=== PATIENT | male | born 1945 | race Caucasian/White ===

== ENCOUNTER 2016-06-20 09:21 | Emergency (ER) | payer MEDICARE, MEDICAID ==
[~2016-06-20 09:21] MED LIST: ADV250INH INH; ALBU17IN INH; AVEL1TAB PO; BACITAB3 PO; CITA40TA4 PO; LEVA750T PO; PRED10TA PO; VITMTA PO
[2016-06-20 10:02] LABS: BASO % 0.8 % (0.0-1.0); EOS # 0.6 K/mm3 (0.0-0.50); EOS % 9.2 % (0.0-3.0); LARGE UNSTAINED CELL # 0.2 K/mm3 (0.0-0.4); LARGE UNSTAINED CELL % 2.6 % (0.0-4.0); LYMPH # 1.2 K/mm3 (1.5-4.5); LYMPH % 19.3 % (24.0-44.0); MEAN CORPUSCULAR HEMOGLOBIN 36.2 pg (27.0-33.0); MEAN CORPUSCULAR HGB CONC 35.1 g/dl (32.0-36.5); MEAN CORPUSCULAR VOLUME 103.1 fl (80.0-96.0); MONO # 0.4 K/mm3 (0.0-0.8); MONO % 6.1 % (0.0-5.0); NEUTROPHILS # 3.9 K/mm3 (1.8-7.7); PLATELET COUNT, AUTOMATED 238 k/mm3 (150-450); RED CELL DISTRIBUTION WIDTH 12.5 % (11.5-14.5); WHITE BLOOD COUNT 6.2 K/mm3 (4.0-10.0)
[2016-06-20] MEDS ORDERED: IPRATROPIUM 0.5MG/ALBUTEROL 2.5MG INH SOL UD 3ML (DUONEB)(J7620) As Ordered ONE (10:05)
[2016-06-20 10:21] LABS: ANION GAP 6 MEQ/L (8-16); BLOOD UREA NITROGEN 12 MG/DL (7-18); CALCIUM LEVEL 8.8 MG/DL (8.8-10.2); CARBON DIOXIDE LEVEL 30 MEQ/L (21-32); CHLORIDE LEVEL 108 MEQ/L (98-107); CREATININE FOR GFR 0.98 MG/DL (0.70-1.30); GLOMERULAR FILTRATION RATE > 60.0 (>42); GLUCOSE, FASTING 121 MG/DL (83-110); POTASSIUM SERUM 4.3 MEQ/L (3.5-5.1); SODIUM LEVEL 144 MEQ/L (136-145)
[2016-06-20] MEDS ORDERED: methylPREDNISolone INJ 125 MG/2 ML VIAL (J2930) As Ordered ONE (10:24)
--- NOTE | 2016-06-20 10:29 | REP ---
CHEST, ONE VIEW: HISTORY: Shortness of breath. COMPARISON: 05/30/2016 An increase in interstitial markings is present in the lungs. The heart is normal in size. The pulmonary vasculature is normal in appearance. IMPRESSION: COPD. Signed by Parish Sanderson MD 06/20/2016 11:16 A
[2016-06-20] MEDS ORDERED: ALBUTEROL SULFATE 2.5 MG/0.5 ML INH NEB SOLN As Ordered ONE (11:58)
--- NOTE | 2016-06-20 13:42 | EDDOCDS ---
Nurse's Notes [facility] Name: Mann Lira Age: 71 yrs Sex: Male : 1945 Arrival Date: 06/20/2016 Time: 09:21 Bed 6 Private MD: Ct Phan PA-C. Diagnosis: Chronic obstructive pulmonary disease with (acute) exacerbation;Bronchitis, not specified as acute or chronic Presentation: 06/20 09:25 Presenting complaint: Patient states: Pt c/o cough and difficulty breathing. Reports ead diagnosis of bronchitis three weeks ago, reports some improvement initially, worsening since 4-5 days ago. Adult Sepsis Screening: The patient does not have new or worsening altered mentation. Patient has a respiratory rate of greater than or equal to 22 (1 point). Systolic blood pressure is greater than 100. Patient has a qSOFA score of 0- Negative Sepsis Screen. Suicide/Homicide risk assessment- the patient denies having any suicidal and/or homicidal ideations and does not present with any other emotional, behavioral or mental health complaints. Status: Patient is not a driver service technician or dependent. Transition of care: patient was not received from another setting of care. 09:25 Acuity: MAGDALENA Level 3 ead 09:25 Method Of Arrival: Walkin/Carried/Asstd ead Triage Assessment: 09:27 General: Appears in no apparent distress, Behavior is appropriate for age, cooperative. ead Pain: Denies pain. Neurological: No deficits noted. Cardiovascular: Chest pain is denied. Respiratory: Onset: The symptoms/episode began/occurred 4-5 days, Airway is patent Respiratory effort is labored, Reports shortness of breath cough that is. Derm: Skin is pink, warm & dry. Historical: - Allergies: no known allergies; - Home Meds: 1. Advair Diskus Inhl 2 times per day (Last dose: 06/20/2016) 2. albuterol sulfate 90 mcg/actuation Inhl HFAA 2 puffs every 4-6 hours prn (Last dose: 06/19/2016) 3. albuterol sulfate 2.5 mg /3 mL (0.083 %) Inhl nebu 3 mL every 8 hours (Last dose: 06/20/2016 00:00) 4. Celexa 40 mg Oral tab once daily (Last dose: 06/20/2016) - PMHx: Anxiety; COPD; Depression; - PSHx: none; - Social history: Smoking status: Patient states was never smoker of tobacco. No barriers to communication noted, The patient speaks fluent Maltese, Speaks appropriately for age. - Family history: Not pertinent. - : The pt / caregiver states he / she is not on anticoagulants. Home medication list is obtained from the patient, [employer] import data. - Exposure Risk Screening:: None identified. Screenin:01 Screening information is obtained from the patient. Fall risk: No risks identified. mk4 Assistance ADL's: requires no assistance with activities of daily living. Abuse/DV Screen: The patient / caregiver reports he/she is: not in a situation that causes fear, pain or injury. Nutritional screening: No deficits noted. home support is adequate. 13:39 Advance Directives: There is no active DNR order. [place] Assessment: 10:00 General: Appears in no apparent distress. Cardiovascular: Rhythm is regular. mk4 Respiratory: Airway is patent Respiratory effort is even, labored, Respiratory pattern is tachypnea Breath sounds with wheezes inspiratory expiratory bilaterally. 10:33 General: Appears in no apparent distress, comfortable. Respiratory: Airway is patent mk4 Respiratory effort is even, labored, Respiratory pattern is regular, tachypnea. 10:55 General: Appears in no apparent distress, comfortable. Respiratory: Airway is patent mk4 Respiratory pattern is tachypnea. 11:24 General: Appears in no apparent distress, comfortable, Behavior is appropriate for age, [place] cooperative. General: OOB to BR, tolerates well. Pain: Denies pain. Pain: Denies pain. Neurological: Level of Consciousness is awake, alert, Oriented to person, place, time. Respiratory: Airway is patent Respiratory effort is even, unlabored, Respiratory pattern is regular, symmetrical, Breath sounds with wheezes bilaterally. Derm: Skin is pink, warm & dry. 12:35 General: RESIDENTIAL PROPERTY CONSULTANT reports to this writer editor patient ambulated on room air to C4, O2 sat from [place] 97% to 92%, tolerated with no complaints. 13:39 General: Appears in no apparent distress, comfortable, Behavior is appropriate for age, [place] cooperative, awaiting discharge, reviewed discharge instructions, encouraged and answered questions, denies new problems or complaints and declines offer of further assistance. Vital Signs: 09:23 BP 121 / 66; Pulse 108; Resp 24 S; Temp 97.4(O); Pulse Ox 94% on R/A; Weight 61.23 kg dd6 (R); Height 5 ft. 7 in. (170.18 cm) (R); 09:35 BP 147 / 74 (auto/); mk4 09:38 Pulse 98 MON; Resp 36; Pulse Ox 93% ; mk4 09:50 BP 146 / 83 (auto/); mk4 09:51 Pulse 90 MON; Pulse Ox 94% ; mk4 10:05 BP 140 / 78 (auto/); mk4 10:05 Pulse 86 MON; Pulse Ox 94% ; mk4 10:20 BP 155 / 72 (auto/); mk4 10:20 Pulse 92 MON; Resp 36; Pulse Ox 96% ; mk4 12:29 dem1 13:27 BP 141 / 62; Pulse 92; Resp 18; Temp 97.9(O); Pulse Ox 97% on R/A; Pain 0/10; ct3 09:23 Body Mass Index 21.14 (61.23 kg, 170.18 cm) dd6 12:29 Patient ambulated with Pulse Ox, started with a stat of 96%RA, dropped down to 92%RA. dem1 No complaints, tolerated well Vitals: 09:23 Log In Time: June 20, 2016 at 09:21. dd6 ED Course: 09:23 Patient visited by Juan Lacy PCA. dd6 09:23 Ct Phan is Private Physician. dd6 09:23 Patient moved to Waiting dd6 09:24 Patient moved to Pre RCE dd6 09:26 Triage Initiated ead 09:31 Patient moved to 6 ead 09:32 Mel Martin MD is Attending Physician. fg 09:49 -Blood Culture Sent. mk4 09:49 B-Type Natiuretic Peptide Sent. mk4 09:49 Basic Metabolic Profile Sent. mk4 09:49 CBC with Diff Sent. mk4 09:49 Cardiac Injury Profile Sent. mk4 09:49 Troponin Sent. mk4 09:54 Patient visited by Mel Martin MD. fg 09:58 Patient visited by Cat Rice PCA. ct3 09:58 EKG done. (by ED staff). Reviewed by Mel Martin MD. ct3 10:01 The patient / caregiver is instructed regarding the plan of care and ED course. mk4 10:01 court monitor on. Pulse ox on. NIBP on. mk4 10:32 Patient visited by Cata Terrell RN. mk4 10:33 [facility] Payment Agreement was scanned into [employer] and attached to record. lg 10:33 Inserted saline lock: 20 gauge in right antecubital area and blood collected. No mk4 procedures done that require assistance. 10:44 Chest, 1 View Returned. EDMS 11:02 Patient visited by Cata Terrell RN. mk4 12:03 Patient visited by Cat Rice PCA. ct3 12:30 Patient visited by Dana Olmstead. dem1 13:15 Patient visited by Cat Rice PCA. ct3 13:18 Ct Phan is Referral Physician. fg 13:28 Patient visited by Cat Rice PCA. ct3 13:39 Discontinued lock intact, bleeding controlled, pressure dressing applied, No cjh redness/swelling at site. Administered Medications: 10:09 Drug: Albuterol-Ipratropium 3 ml [ipratropium-albuterol 0.5 mg-3 mg(2.5 mg base)/3 mL cs15 nebulization soln (3 mL)] Route: Inhalation; 10:32 Drug: Solu-MEDROL 125 mg [Solu-Medrol 500 mg intravenous solution (125 mg)] Route: IVP; mk4 Site: right antecubital; 12:04 Drug: Albuterol 2.5 mg [albuterol sulfate 2.5 mg/0.5 mL solution for nebulization (0.5 cs15 mL)] Route: Nebulizer; RT: 10:10 Initial Med Neb Given as ordered. Respiratory: Respiratory effort is labored, cs15 Respiratory pattern is regular Breath sounds are diminished bilaterally. Breath sounds with wheezes in left upper lobe and left lower lobe at expiration. 12:04 Subsequent Med Neb Given as ordered. Respiratory: Respiratory effort is unlabored, cs15 Breath sounds are clear bilaterally. SOB attributed to walking. Lung status has not changed. Order Results: Lab Order: B-Type Natiuretic Peptide; SPEC'M 06/20/16 09:47 Test: BRAIN NATRIURETIC PEPTIDE; Value: 18.6; Range: <100; Units: PG/ML; Status: F Lab Order: Basic Metabolic Profile; SPEC'M 06/20/16 09:47 Test: GLUCOSE, FASTING; Value: 121; Range: 83-110; Abnormal: Above high normal; Units: MG/DL; Status: F Test: BLOOD UREA NITROGEN; Value: 12; Range: 7-18; Units: MG/DL; Status: F Test: CREATININE FOR GFR; Value: 0.98; Range: 0.70-1.30; Units: MG/DL; Status: F Test: GLOMERULAR FILTRATION RATE; Value: > 60.0; Range: >42; Status: F Test: SODIUM LEVEL; Value: 144; Range: 136-145; Units: MEQ/L; Status: F Test: POTASSIUM SERUM; Value: 4.3; Range: 3.5-5.1; Units: MEQ/L; Status: F Test: CHLORIDE LEVEL; Value: 108; Range: 98-107; Abnormal: Above high normal; Units: MEQ/L; Status: F Test: CARBON DIOXIDE LEVEL; Value: 30; Range: 21-32; Units: MEQ/L; Status: F Test: ANION GAP; Value: 6; Range: 8-16; Abnormal: Below low normal; Units: MEQ/L; Status: F Test: CALCIUM LEVEL; Value: 8.8; Range: 8.8-10.2; Units: MG/DL; Status: F Test Note: ; Units are mL/min/1.73 m2 Chronic Kidney Disease Staging per NKF: Stage I & II GFR >=60 Normal to Mildly Decreased Stage III GFR 30-59 Moderately Decreased Stage IV GFR 15-29 Severely Decreased Stage V GFR <15 Very Little GFR Left ESRD GFR <15 on EDITORIAL CARTOONIST Lab Order: CBC with Diff; SPEC'M 06/20/16 09:47 Test: WHITE BLOOD COUNT; Value: 6.2; Range: 4.0-10.0; Units: K/mm3; Status: F Test: RED BLOOD COUNT; Value: 4.74; Range: 4.30-6.10; Units: M/mm3; Status: F Test: HEMOGLOBIN; Value: 17.1; Range: 14.0-18.0; Units: g/dl; Status: F Test: HEMATOCRIT; Value: 48.8; Range: 42.0-52.0; Units: %; Status: F Test: MEAN CORPUSCULAR VOLUME; Value: 103.1; Range: 80.0-96.0; Abnormal: Above high normal; Units: fl; Status: F Test: MEAN CORPUSCULAR HEMOGLOBIN; Value: 36.2; Range: 27.0-33.0; Abnormal: Above high normal; Units: pg; Status: F Test: MEAN CORPUSCULAR HGB CONC; Value: 35.1; Range: 32.0-36.5; Units: g/dl; Status: F Test: RED CELL DISTRIBUTION WIDTH; Value: 12.5; Range: 11.5-14.5; Units: %; Status: F Test: PLATELET COUNT, AUTOMATED; Value: 238; Range: 150-450; Units: k/mm3; Status: F Test: NEUTROPHILS %; Value: 62.0; Range: 36.0-66.0; Units: %; Status: F Test: LYMPH %; Value: 19.3; Range: 24.0-44.0; Abnormal: Below low normal; Units: %; Status: F Test: MONO %; Value: 6.1; Range: 0.0-5.0; Abnormal: Above high normal; Units: %; Status: F Test: EOS %; Value: 9.2; Range: 0.0-3.0; Abnormal: Above high normal; Units: %; Status: F Test: BASO %; Value: 0.8; Range: 0.0-1.0; Units: %; Status: F Test: LARGE UNSTAINED CELL %; Value: 2.6; Range: 0.0-4.0; Units: %; Status: F Test: NEUTROPHILS #; Value: 3.9; Range: 1.8-7.7; Units: K/mm3; Status: F Test: LYMPH #; Value: 1.2; Range: 1.5-4.5; Abnormal: Below low normal; Units: K/mm3; Status: F Test: MONO #; Value: 0.4; Range: 0.0-0.8; Units: K/mm3; Status: F Test: EOS #; Value: 0.6; Range: 0.0-0.50; Abnormal: Above high normal; Units: K/mm3; Status: F Test: BASO #; Value: 0.0; Range: 0.0-0.2; Units: K/mm3; Status: F Test: LARGE UNSTAINED CELL #; Value: 0.2; Range: 0.0-0.4; Units: K/mm3; Status: F Lab Order: Cardiac Injury Profile; SPEC'M 06/20/16 09:47 Test: CPK CREATINE PHOSPHOKINASE; Value: 61; Range: 39-308; Units: U/L; Status: F Test: CK-MB VALUE MASS; Value: 2.8; Range: 0.0-3.6; Units: NG/ML; Status: F Test: MB/CK RELATIVE INDEX; Value: 4.59; Range: < OR =4; Abnormal: Above high normal; Status: F Test Note: ; DIAGNOSIS CRITERIA MMB ng/ml Relative Index (RI) NON-AMI < or = 5 N/A BRINK ZONE > 5 < or = 4 AMI > 5 > 4 Lab Order: Troponin; SPEC'M 06/20/16 09:47 Test: TROPONIN I; Value: < 0.02; Range: < 0.10; Units: NG/ML; Status: F Test Note: ; Troponin I Reference Interval for Rdio LOCI: 99th Percentile= 0.00-0.045 ng/ml Risk Stratification: <= 0.10 ng/ml Decreased Risk for Adverse Clinical Events. 0.10-1.50 ng/ml Increased Risk for Adverse Clinical Events. Evaluation of additional criterion and/or repeat testing in 2-6 hours is suggested to rule out myocardial damage. >= 1.50 ng/ml Indicative of Myocardial Injury. Radiology Order: Chest, 1 View Test: Chest, 1 View REASON FOR EXAMINATION: Shortness of Breath; CHEST, ONE VIEW:; ; HISTORY: Shortness of breath.; ; COMPARISON: 05/30/2016; ; An increase in interstitial markings is present in the lungs. The heart is normal; in size. The pulmonary vasculature is normal in appearance.; ; IMPRESSION:; ; COPD.; ; ; Signed by; Parish Sanderson MD 06/20/2016 11:16 A; Outcome: 13:19 Discharge ordered by Provider. 13:39 Discharge Assessment: Patient awake, alert and oriented x 3. No cognitive and/or cjh functional deficits noted. Patient verbalized understanding of disposition instructions. patient administered narcotics - no. The following High Risk Discharge criteria are identified: None. Discharged to home ambulatory, with significant other. Condition: good Condition: stable Condition: improved. Discharge instructions given to patient, Instructed on discharge instructions, follow up and referral plans. medication usage, Demonstrated understanding of instructions, medications, Pt was receptive of discharge instructions/ teaching. Prescriptions given X 1. No special radiology studies were completed. Property :Personal belongings accompany Pt. 13:41 Patient left the ED. [place] Signatures: Dispatcher [employer] EDMS Kumar Lawrence, Reg Reg lg Juan Lacy, RESIDENTIAL PROPERTY CONSULTANT RESIDENTIAL PROPERTY CONSULTANT dd6 Cat Rice, RESIDENTIAL PROPERTY CONSULTANT RESIDENTIAL PROPERTY CONSULTANT ct3 Dana Olmstead1 Kayla Maurer,RN RN [place] Cata Terrell RN RN mk4 Linda Herrera,RN RN Mel Hidalgo MD MD fg Shelton, Caleb,RT RT cs15 Corrections: (The following items were deleted from the chart) 10:56 10:20 Pulse 92bpm; Monitor; Pulse Ox 96%; mk4 mk4 MTDD
--- NOTE | 2016-06-20 13:42 | EDDOCDS ---
Physician Documentation [facility] Name: Mann Lira Age: 71 yrs Sex: Male : 1945 Arrival Date: 06/20/2016 Time: 09:21 Bed 6 Private MD: Ct Phan PA-C. Disposition: 06/20/16 13:19 Discharged to Home/Self Care. Impression: Chronic obstructive pulmonary disease with (acute) exacerbation, Bronchitis, not specified as acute or chronic. - Condition is Stable. - Discharge Instructions: Acute Bronchitis, Chronic Obstructive Pulmonary Disease. - Prescriptions for Doxycycline Hyclate 100 mg Oral Tablet - take 1 tablet by ORAL route every 12 hours; 20 tablet. - Medication Reconciliation, Local Pharmacy Hours form. - Follow up: Ct Phan; When: Call to arrange an appointment; Reason: Continuance of care. - Problem is new. - Symptoms have worsened. Historical: - Allergies: no known allergies; - Home Meds: 1. Advair Diskus Inhl 2 times per day (Last dose: 06/20/2016) 2. albuterol sulfate 90 mcg/actuation Inhl HFAA 2 puffs every 4-6 hours prn (Last dose: 06/19/2016) 3. albuterol sulfate 2.5 mg /3 mL (0.083 %) Inhl nebu 3 mL every 8 hours (Last dose: 06/20/2016 00:00) 4. Celexa 40 mg Oral tab once daily (Last dose: 06/20/2016) - PMHx: Anxiety; COPD; Depression; - PSHx: none; - Social history: Smoking status: Patient states was never smoker of tobacco. No barriers to communication noted, The patient speaks fluent Georgian, Speaks appropriately for age. - Family history: Not pertinent. - : The pt / caregiver states he / she is not on anticoagulants. Home medication list is obtained from the patient, [employer] import data. - Exposure Risk Screening:: None identified. Vital Signs: 06/20 09:23 BP 121 / 66; Pulse 108; Resp 24 S; Temp 97.4(O); Pulse Ox 94% on R/A; Weight 61.23 kg / dd6 134.99 lbs (R); Height 5 ft. 7 in. (170.18 cm) (R); 09:35 BP 147 / 74 (auto/); mk4 09:38 Pulse 98 MON; Resp 36; Pulse Ox 93% ; mk4 09:50 BP 146 / 83 (auto/); mk4 09:51 Pulse 90 MON; Pulse Ox 94% ; mk4 10:05 BP 140 / 78 (auto/); mk4 10:05 Pulse 86 MON; Pulse Ox 94% ; mk4 10:20 BP 155 / 72 (auto/); mk4 10:20 Pulse 92 MON; Resp 36; Pulse Ox 96% ; mk4 12:29 dem1 13:27 BP 141 / 62; Pulse 92; Resp 18; Temp 97.9(O); Pulse Ox 97% on R/A; Pain 0/10; ct3 09:23 Body Mass Index 21.14 (61.23 kg, 170.18 cm) dd6 12:29 Patient ambulated with Pulse Ox, started with a stat of 96%RA, dropped down to 92%RA. dem1 No complaints, tolerated well MDM: 09:32 -Blood Culture (Adults Only), peripheral from different site, or from device/port/PICC fg etc. if present ordered. 09:32 Tow Driver/Pulse Ox/q 15 min VS ordered. fg 09:32 IV Saline Lock ordered. fg 09:32 Oxygen at 4L/Min NC or Home dosage ordered. fg 09:32 Rhythm Strip to chart ordered. fg 09:33 B-Type Natiuretic Peptide Ordered. EDMS 09:33 Basic Metabolic Profile Ordered. EDMS 09:33 CBC with Diff Ordered. EDMS 09:33 Cardiac Injury Profile Ordered. EDMS 09:33 Troponin Ordered. EDMS 09:33 -Blood Culture Ordered. EDMS 09:34 Chest, 1 View Ordered. EDMS 09:34 ECG WITH READING ER PHYS+CARDIAG ordered. EDMS 09:45 -Blood Culture (Adults Only), peripheral from different site, or from device/port/PICC deg etc. if present complete. 09:46 BLOOD CULTURES Ordered. EDMS 10:02 Solu-MEDROL 125 mg IVP once ordered. fg 10:02 Albuterol-Ipratropium 3 ml Inhalation once ordered. fg 10:02 Call Respiratory ordered. fg 10:03 Call Respiratory complete. deg 10:32 Financial registration complete. lg 10:33 [facility] Payment Agreement was scanned into [employer] and attached to record. lg 11:36 Albuterol 2.5 mg Nebulizer once ordered. fg Administered Medications: 10:09 Drug: Albuterol-Ipratropium 3 ml [ipratropium-albuterol 0.5 mg-3 mg(2.5 mg base)/3 mL cs15 nebulization soln (3 mL)] Route: Inhalation; 10:32 Drug: Solu-MEDROL 125 mg [Solu-Medrol 500 mg intravenous solution (125 mg)] Route: IVP; mk4 Site: right antecubital; 12:04 Drug: Albuterol 2.5 mg [albuterol sulfate 2.5 mg/0.5 mL solution for nebulization (0.5 cs15 mL)] Route: Nebulizer; Signatures: Dispatcher [employer] Maria Alejandra Antonio, Chief Counsel Unit deg Kumar Lawrence, Hema Reg lg Kayla Maurer,RN Cata Elmore RN INDIRA [facility] Linda Herrera RN RN ead Gill, Frances, MD MD Noah Aquino RT cs15 The chart was reviewed and I authenticate all verbal orders and agree with the evaluation and treatment provided.Attachments: 10:33 [facility] Payment Agreement lg MTDD
--- NOTE | 2016-06-21 08:01 | ECGEPIP ---
Stationary ECG Study [facility] - ED Test Date: 2016-06-20 Pat Name: CHAD ROLLINS Department: Room: - Gender: M Dehydrator: ct : 1945 Requested By: NIGEL Torres Order Number: [id number] Reading MD: Marbella Ro Measurements Intervals [place] Rate: 91 P: 78 RI: 171 QRS: 56 QRSD: 82 T: 59 QT: 339 QTc: 418 Interpretive Statements SINUS RHYTHM WITH OCCASIONAL VENTRICULAR PREMATURE COMPLEXES DECREASED RATE/INCREASED ECTOPY 05/30/16 Electronically Signed On 06-21-2016 8:00:49 EST by Marbella Ro
--- NOTE | 2016-06-22 14:42 | EDDOCDS ---
Physician Documentation [facility] Name: Mann Lira Age: 71 yrs Sex: Male : 1945 Arrival Date: 06/20/2016 Time: 09:21 Bed 6 Private MD: Ct Phan PA-C. Disposition: 06/20/16 13:19 Discharged to Home/Self Care. Impression: Chronic obstructive pulmonary disease with (acute) exacerbation, Bronchitis, not specified as acute or chronic. - Condition is Stable. - Discharge Instructions: Acute Bronchitis, Chronic Obstructive Pulmonary Disease. - Prescriptions for Doxycycline Hyclate 100 mg Oral Tablet - take 1 tablet by ORAL route every 12 hours; 20 tablet. - Medication Reconciliation, Local Pharmacy Hours form. - Follow up: Ct Phan; When: Call to arrange an appointment; Reason: Continuance of care. - Problem is new. - Symptoms have worsened. Historical: - Allergies: no known allergies; - Home Meds: 1. Advair Diskus Inhl 2 times per day (Last dose: 06/20/2016) 2. albuterol sulfate 90 mcg/actuation Inhl HFAA 2 puffs every 4-6 hours prn (Last dose: 06/19/2016) 3. albuterol sulfate 2.5 mg /3 mL (0.083 %) Inhl nebu 3 mL every 8 hours (Last dose: 06/20/2016 00:00) 4. Celexa 40 mg Oral tab once daily (Last dose: 06/20/2016) - PMHx: Anxiety; COPD; Depression; - PSHx: none; - Social history: Smoking status: Patient states was never smoker of tobacco. No barriers to communication noted, The patient speaks fluent Haitian, Speaks appropriately for age. - Family history: Not pertinent. - : The pt / caregiver states he / she is not on anticoagulants. Home medication list is obtained from the patient, [employer] import data. - Exposure Risk Screening:: None identified. Vital Signs: 06/20 09:23 BP 121 / 66; Pulse 108; Resp 24 S; Temp 97.4(O); Pulse Ox 94% on R/A; Weight 61.23 kg / dd6 134.99 lbs (R); Height 5 ft. 7 in. (170.18 cm) (R); 09:35 BP 147 / 74 (auto/); mk4 09:38 Pulse 98 MON; Resp 36; Pulse Ox 93% ; mk4 09:50 BP 146 / 83 (auto/); mk4 09:51 Pulse 90 MON; Pulse Ox 94% ; mk4 10:05 BP 140 / 78 (auto/); mk4 10:05 Pulse 86 MON; Pulse Ox 94% ; mk4 10:20 BP 155 / 72 (auto/); mk4 10:20 Pulse 92 MON; Resp 36; Pulse Ox 96% ; mk4 12:29 dem1 13:27 BP 141 / 62; Pulse 92; Resp 18; Temp 97.9(O); Pulse Ox 97% on R/A; Pain 0/10; ct3 09:23 Body Mass Index 21.14 (61.23 kg, 170.18 cm) dd6 12:29 Patient ambulated with Pulse Ox, started with a stat of 96%RA, dropped down to 92%RA. dem1 No complaints, tolerated well MDM: 09:32 -Blood Culture (Adults Only), peripheral from different site, or from device/port/PICC fg etc. if present ordered. 09:32 Field Consultant/Pulse Ox/q 15 min VS ordered. fg 09:32 IV Saline Lock ordered. fg 09:32 Oxygen at 4L/Min NC or Home dosage ordered. fg 09:32 Rhythm Strip to chart ordered. fg 09:33 B-Type Natiuretic Peptide Ordered. EDMS 09:33 Basic Metabolic Profile Ordered. EDMS 09:33 CBC with Diff Ordered. EDMS 09:33 Cardiac Injury Profile Ordered. EDMS 09:33 Troponin Ordered. EDMS 09:33 -Blood Culture Ordered. EDMS 09:34 Chest, 1 View Ordered. EDMS 09:34 ECG WITH READING ER PHYS+CARDIAG ordered. EDMS 09:45 -Blood Culture (Adults Only), peripheral from different site, or from device/port/PICC deg etc. if present complete. 09:46 BLOOD CULTURES Ordered. EDMS 10:02 Solu-MEDROL 125 mg IVP once ordered. fg 10:02 Albuterol-Ipratropium 3 ml Inhalation once ordered. fg 10:02 Call Respiratory ordered. fg 10:03 Call Respiratory complete. deg 10:32 Financial registration complete. lg 10:33 [facility] Payment Agreement was scanned into [email or web address] and attached to record. lg 11:36 Albuterol 2.5 mg Nebulizer once ordered. fg 06/21 12:02 T-Sheet-- Draft Copy was scanned into [employer] and attached to record. gb 12:02 ECG/EKG was scanned into [email or web address] and attached to record. gb Administered Medications: 06/20 10:09 Drug: Albuterol-Ipratropium 3 ml [ipratropium-albuterol 0.5 mg-3 mg(2.5 mg base)/3 mL cs15 nebulization soln (3 mL)] Route: Inhalation; 10:32 Drug: Solu-MEDROL 125 mg [Solu-Medrol 500 mg intravenous solution (125 mg)] Route: IVP; mk4 Site: right antecubital; 12:04 Drug: Albuterol 2.5 mg [albuterol sulfate 2.5 mg/0.5 mL solution for nebulization (0.5 cs15 mL)] Route: Nebulizer; Signatures: Dispatcher [employer] EDMS Maria Alejandra Angeles, End [employer]pler Unit deg Nadia Hallman, Reg Reg gb Kumar Lawrence, Reg Reg lg Kayla MaurerRN Cata Elmore RN RN [facility] Linda HerreraRN RN Mel Hidalgo MD MD Noah Aquino RT [id number] The chart was reviewed and I authenticate all verbal orders and agree with the evaluation and treatment provided.Attachments: 10:33 [facility] Payment Agreement lg 06/21 12:02 T-Sheet-- Draft Copy gb 12:02 ECG/EKG gb Chart Complete [facility]
--- NOTE | 2016-06-22 14:42 | EDDOCDS ---
Physician Documentation [facility] Name: Mann Lira Age: 71 yrs Sex: Male : 1945 Arrival Date: 06/20/2016 Time: 09:21 Bed 6 Private MD: Ct Phan PA-C. Disposition: 06/20/16 13:19 Discharged to Home/Self Care. Impression: Chronic obstructive pulmonary disease with (acute) exacerbation, Bronchitis, not specified as acute or chronic. - Condition is Stable. - Discharge Instructions: Acute Bronchitis, Chronic Obstructive Pulmonary Disease. - Prescriptions for Doxycycline Hyclate 100 mg Oral Tablet - take 1 tablet by ORAL route every 12 hours; 20 tablet. - Medication Reconciliation, Local Pharmacy Hours form. - Follow up: Ct Phan; When: Call to arrange an appointment; Reason: Continuance of care. - Problem is new. - Symptoms have worsened. Historical: - Allergies: no known allergies; - Home Meds: 1. Advair Diskus Inhl 2 times per day (Last dose: 06/20/2016) 2. albuterol sulfate 90 mcg/actuation Inhl HFAA 2 puffs every 4-6 hours prn (Last dose: 06/19/2016) 3. albuterol sulfate 2.5 mg /3 mL (0.083 %) Inhl nebu 3 mL every 8 hours (Last dose: 06/20/2016 00:00) 4. Celexa 40 mg Oral tab once daily (Last dose: 06/20/2016) - PMHx: Anxiety; COPD; Depression; - PSHx: none; - Social history: Smoking status: Patient states was never smoker of tobacco. No barriers to communication noted, The patient speaks fluent Chadian, Speaks appropriately for age. - Family history: Not pertinent. - : The pt / caregiver states he / she is not on anticoagulants. Home medication list is obtained from the patient, [employer] import data. - Exposure Risk Screening:: None identified. Vital Signs: 06/20 09:23 BP 121 / 66; Pulse 108; Resp 24 S; Temp 97.4(O); Pulse Ox 94% on R/A; Weight 61.23 kg / dd6 134.99 lbs (R); Height 5 ft. 7 in. (170.18 cm) (R); 09:35 BP 147 / 74 (auto/); mk4 09:38 Pulse 98 MON; Resp 36; Pulse Ox 93% ; mk4 09:50 BP 146 / 83 (auto/); mk4 09:51 Pulse 90 MON; Pulse Ox 94% ; mk4 10:05 BP 140 / 78 (auto/); mk4 10:05 Pulse 86 MON; Pulse Ox 94% ; mk4 10:20 BP 155 / 72 (auto/); mk4 10:20 Pulse 92 MON; Resp 36; Pulse Ox 96% ; mk4 12:29 dem1 13:27 BP 141 / 62; Pulse 92; Resp 18; Temp 97.9(O); Pulse Ox 97% on R/A; Pain 0/10; ct3 09:23 Body Mass Index 21.14 (61.23 kg, 170.18 cm) dd6 12:29 Patient ambulated with Pulse Ox, started with a stat of 96%RA, dropped down to 92%RA. dem1 No complaints, tolerated well MDM: 09:32 -Blood Culture (Adults Only), peripheral from different site, or from device/port/PICC fg etc. if present ordered. 09:32 Director Of Early Childhood/Pulse Ox/q 15 min VS ordered. fg 09:32 IV Saline Lock ordered. fg 09:32 Oxygen at 4L/Min NC or Home dosage ordered. fg 09:32 Rhythm Strip to chart ordered. fg 09:33 B-Type Natiuretic Peptide Ordered. EDMS 09:33 Basic Metabolic Profile Ordered. EDMS 09:33 CBC with Diff Ordered. EDMS 09:33 Cardiac Injury Profile Ordered. EDMS 09:33 Troponin Ordered. EDMS 09:33 -Blood Culture Ordered. EDMS 09:34 Chest, 1 View Ordered. EDMS 09:34 ECG WITH READING ER PHYS+CARDIAG ordered. EDMS 09:45 -Blood Culture (Adults Only), peripheral from different site, or from device/port/PICC deg etc. if present complete. 09:46 BLOOD CULTURES Ordered. EDMS 10:02 Solu-MEDROL 125 mg IVP once ordered. fg 10:02 Albuterol-Ipratropium 3 ml Inhalation once ordered. fg 10:02 Call Respiratory ordered. fg 10:03 Call Respiratory complete. deg 10:32 Financial registration complete. lg 10:33 [facility] Payment Agreement was scanned into [employer] and attached to record. lg 11:36 Albuterol 2.5 mg Nebulizer once ordered. fg 06/21 12:02 T-Sheet-- Draft Copy was scanned into [employer] and attached to record. gb 12:02 ECG/EKG was scanned into [employer] and attached to record. gb Administered Medications: 06/20 10:09 Drug: Albuterol-Ipratropium 3 ml [ipratropium-albuterol 0.5 mg-3 mg(2.5 mg base)/3 mL cs15 nebulization soln (3 mL)] Route: Inhalation; 10:32 Drug: Solu-MEDROL 125 mg [Solu-Medrol 500 mg intravenous solution (125 mg)] Route: IVP; mk4 Site: right antecubital; 12:04 Drug: Albuterol 2.5 mg [albuterol sulfate 2.5 mg/0.5 mL solution for nebulization (0.5 cs15 mL)] Route: Nebulizer; Signatures: Dispatcher MedHost EDMS Maria Alejandra Angeles, Senior Solutions Workflow Consultant Unit deg Nadia Hallman, Reg Reg gb Kumar Lawrence, Reg Reg lg Kayla MaurerRN Cata Elmore RN RN [facility] Linda HerreraRN RN Mel Hidalgo MD MD Noah Aquino RT cs15 The chart was reviewed and I authenticate all verbal orders and agree with the evaluation and treatment provided.Attachments: 10:33 [facility] Payment Agreement lg 06/21 12:02 T-Sheet-- Draft Copy gb 12:02 ECG/EKG gb Chart Complete [facility]
--- NOTE | 2016-06-22 14:42 | EDDOCDS ---
Nurse's Notes [facility] Name: Chad Lira Age: 71 yrs Sex: Male : 1945 Arrival Date: 06/20/2016 Time: 09:21 Bed 6 Private MD: Ct Phan PA-C. Diagnosis: Chronic obstructive pulmonary disease with (acute) exacerbation;Bronchitis, not specified as acute or chronic Presentation: 06/20 09:25 Presenting complaint: Patient states: Pt c/o cough and difficulty breathing. Reports ead diagnosis of bronchitis three weeks ago, reports some improvement initially, worsening since 4-5 days ago. Adult Sepsis Screening: The patient does not have new or worsening altered mentation. Patient has a respiratory rate of greater than or equal to 22 (1 point). Systolic blood pressure is greater than 100. Patient has a qSOFA score of 0- Negative Sepsis Screen. Suicide/Homicide risk assessment- the patient denies having any suicidal and/or homicidal ideations and does not present with any other emotional, behavioral or mental health complaints. Status: Patient is not a service or work dispatcher chief or dependent. Transition of care: patient was not received from another setting of care. 09:25 Acuity: MAGDALENA Level 3 ead 09:25 Method Of Arrival: Walkin/Carried/Asstd ead Triage Assessment: 09:27 General: Appears in no apparent distress, Behavior is appropriate for age, cooperative. ead Pain: Denies pain. Neurological: No deficits noted. Cardiovascular: Chest pain is denied. Respiratory: Onset: The symptoms/episode began/occurred 4-5 days, Airway is patent Respiratory effort is labored, Reports shortness of breath cough that is. Derm: Skin is pink, warm & dry. Historical: - Allergies: no known allergies; - Home Meds: 1. Advair Diskus Inhl 2 times per day (Last dose: 06/20/2016) 2. albuterol sulfate 90 mcg/actuation Inhl HFAA 2 puffs every 4-6 hours prn (Last dose: 06/19/2016) 3. albuterol sulfate 2.5 mg /3 mL (0.083 %) Inhl nebu 3 mL every 8 hours (Last dose: 06/20/2016 00:00) 4. Celexa 40 mg Oral tab once daily (Last dose: 06/20/2016) - PMHx: Anxiety; COPD; Depression; - PSHx: none; - Social history: Smoking status: Patient states was never smoker of tobacco. No barriers to communication noted, The patient speaks fluent Honduran, Speaks appropriately for age. - Family history: Not pertinent. - : The pt / caregiver states he / she is not on anticoagulants. Home medication list is obtained from the patient, [employer] import data. - Exposure Risk Screening:: None identified. Screenin:01 Screening information is obtained from the patient. Fall risk: No risks identified. mk4 Assistance ADL's: requires no assistance with activities of daily living. Abuse/DV Screen: The patient / caregiver reports he/she is: not in a situation that causes fear, pain or injury. Nutritional screening: No deficits noted. home support is adequate. 13:39 Advance Directives: There is no active DNR order. [facility] Assessment: 10:00 General: Appears in no apparent distress. Cardiovascular: Rhythm is regular. mk4 Respiratory: Airway is patent Respiratory effort is even, labored, Respiratory pattern is tachypnea Breath sounds with wheezes inspiratory expiratory bilaterally. 10:33 General: Appears in no apparent distress, comfortable. Respiratory: Airway is patent mk4 Respiratory effort is even, labored, Respiratory pattern is regular, tachypnea. 10:55 General: Appears in no apparent distress, comfortable. Respiratory: Airway is patent mk4 Respiratory pattern is tachypnea. 11:24 General: Appears in no apparent distress, comfortable, Behavior is appropriate for age, [facility] cooperative. General: OOB to BR, tolerates well. Pain: Denies pain. Pain: Denies pain. Neurological: Level of Consciousness is awake, alert, Oriented to person, place, time. Respiratory: Airway is patent Respiratory effort is even, unlabored, Respiratory pattern is regular, symmetrical, Breath sounds with wheezes bilaterally. Derm: Skin is pink, warm & dry. 12:35 General: JUDGE'S CLERK reports to this sign writer hand patient ambulated on room air to C4, O2 sat from [facility] 97% to 92%, tolerated with no complaints. 13:39 General: Appears in no apparent distress, comfortable, Behavior is appropriate for age, [facility] cooperative, awaiting discharge, reviewed discharge instructions, encouraged and answered questions, denies new problems or complaints and declines offer of further assistance. Vital Signs: 09:23 BP 121 / 66; Pulse 108; Resp 24 S; Temp 97.4(O); Pulse Ox 94% on R/A; Weight 61.23 kg dd6 (R); Height 5 ft. 7 in. (170.18 cm) (R); 09:35 BP 147 / 74 (auto/); mk4 09:38 Pulse 98 MON; Resp 36; Pulse Ox 93% ; mk4 09:50 BP 146 / 83 (auto/); mk4 09:51 Pulse 90 MON; Pulse Ox 94% ; mk4 10:05 BP 140 / 78 (auto/); mk4 10:05 Pulse 86 MON; Pulse Ox 94% ; mk4 10:20 BP 155 / 72 (auto/); mk4 10:20 Pulse 92 MON; Resp 36; Pulse Ox 96% ; mk4 12:29 dem1 13:27 BP 141 / 62; Pulse 92; Resp 18; Temp 97.9(O); Pulse Ox 97% on R/A; Pain 0/10; ct3 09:23 Body Mass Index 21.14 (61.23 kg, 170.18 cm) dd6 12:29 Patient ambulated with Pulse Ox, started with a stat of 96%RA, dropped down to 92%RA. dem1 No complaints, tolerated well Vitals: 09:23 Log In Time: June 20, 2016 at 09:21. dd6 ED Course: 09:23 Patient visited by Juan Lacy PCA. dd6 09:23 Ct Phan is Private Physician. dd6 09:23 Patient moved to Waiting dd6 09:24 Patient moved to Pre RCE dd6 09:26 Triage Initiated ead 09:31 Patient moved to 6 ead 09:32 Mel Martin MD is Attending Physician. fg 09:49 -Blood Culture Sent. mk4 09:49 B-Type Natiuretic Peptide Sent. mk4 09:49 Basic Metabolic Profile Sent. mk4 09:49 CBC with Diff Sent. mk4 09:49 Cardiac Injury Profile Sent. mk4 09:49 Troponin Sent. mk4 09:54 Patient visited by Mel Martin MD. fg 09:58 Patient visited by Cat Rice PCA. ct3 09:58 EKG done. (by ED staff). Reviewed by Mel Martin MD. ct3 10:01 The patient / caregiver is instructed regarding the plan of care and ED course. mk4 10:01 satellite project site monitor on. Pulse ox on. NIBP on. mk4 10:32 Patient visited by Cata Terrell RN. mk4 10:33 [facility] Payment Agreement was scanned into [employer] and attached to record. lg 10:33 Inserted saline lock: 20 gauge in right antecubital area and blood collected. No mk4 procedures done that require assistance. 10:44 Chest, 1 View Returned. EDMS 11:02 Patient visited by Cata Terrell RN. mk4 12:03 Patient visited by Cat Rice PCA. ct3 12:30 Patient visited by Dana Olmstead. dem1 13:15 Patient visited by Cat Rice PCA. ct3 13:18 Ct Phan is Referral Physician. fg 13:28 Patient visited by Cat Rice PCA. ct3 13:39 Discontinued lock intact, bleeding controlled, pressure dressing applied, No cjh redness/swelling at site. 06/21 08:09 EKG-ADULT Returned. EDMS 12:02 T-Sheet-- Draft Copy was scanned into [employer] and attached to record. gb 12:02 ECG/EKG was scanned into [employer] and attached to record. gb Administered Medications: 06/20 10:09 Drug: Albuterol-Ipratropium 3 ml [ipratropium-albuterol 0.5 mg-3 mg(2.5 mg base)/3 mL cs15 nebulization soln (3 mL)] Route: Inhalation; 10:32 Drug: Solu-MEDROL 125 mg [Solu-Medrol 500 mg intravenous solution (125 mg)] Route: IVP; mk4 Site: right antecubital; 12:04 Drug: Albuterol 2.5 mg [albuterol sulfate 2.5 mg/0.5 mL solution for nebulization (0.5 cs15 mL)] Route: Nebulizer; RT: 10:10 Initial Med Neb Given as ordered. Respiratory: Respiratory effort is labored, cs15 Respiratory pattern is regular Breath sounds are diminished bilaterally. Breath sounds with wheezes in left upper lobe and left lower lobe at expiration. 12:04 Subsequent Med Neb Given as ordered. Respiratory: Respiratory effort is unlabored, cs15 Breath sounds are clear bilaterally. SOB attributed to walking. Lung status has not changed. Order Results: Lab Order: -Blood Culture; SPEC'M 06/20/16 09:47 Test: BLOOD CULTURE; Value: No growth after 24 hours . All specimens observed; Status: F Test: BLOOD CULTURE; Value: for 5 days. Results final at that time.; Status: F Test: BLOOD CULTURE; Value: No Growth after 48 hours. All Specimens observed; Status: F Test: BLOOD CULTURE; Value: for 7 days. Results final at that time.; Status: F Lab Order: B-Type Natiuretic Peptide; SPEC'M 06/20/16 09:47 Test: BRAIN NATRIURETIC PEPTIDE; Value: 18.6; Range: <100; Units: PG/ML; Status: F Lab Order: Basic Metabolic Profile; SPEC'M 06/20/16 09:47 Test: GLUCOSE, FASTING; Value: 121; Range: 83-110; Abnormal: Above high normal; Units: MG/DL; Status: F Test: BLOOD UREA NITROGEN; Value: 12; Range: 7-18; Units: MG/DL; Status: F Test: CREATININE FOR GFR; Value: 0.98; Range: 0.70-1.30; Units: MG/DL; Status: F Test: GLOMERULAR FILTRATION RATE; Value: > 60.0; Range: >42; Status: F Test: SODIUM LEVEL; Value: 144; Range: 136-145; Units: MEQ/L; Status: F Test: POTASSIUM SERUM; Value: 4.3; Range: 3.5-5.1; Units: MEQ/L; Status: F Test: CHLORIDE LEVEL; Value: 108; Range: 98-107; Abnormal: Above high normal; Units: MEQ/L; Status: F Test: CARBON DIOXIDE LEVEL; Value: 30; Range: 21-32; Units: MEQ/L; Status: F Test: ANION GAP; Value: 6; Range: 8-16; Abnormal: Below low normal; Units: MEQ/L; Status: F Test: CALCIUM LEVEL; Value: 8.8; Range: 8.8-10.2; Units: MG/DL; Status: F Test Note: ; Units are mL/min/1.73 m2 Chronic Kidney Disease Staging per NKF: Stage I & II GFR >=60 Normal to Mildly Decreased Stage III GFR 30-59 Moderately Decreased Stage IV GFR 15-29 Severely Decreased Stage V GFR <15 Very Little GFR Left ESRD GFR <15 on HEALTH PROGRAM SPECIALIST Lab Order: CBC with Diff; SPEC'M 06/20/16 09:47 Test: WHITE BLOOD COUNT; Value: 6.2; Range: 4.0-10.0; Units: K/mm3; Status: F Test: RED BLOOD COUNT; Value: 4.74; Range: 4.30-6.10; Units: M/mm3; Status: F Test: HEMOGLOBIN; Value: 17.1; Range: 14.0-18.0; Units: g/dl; Status: F Test: HEMATOCRIT; Value: 48.8; Range: 42.0-52.0; Units: %; Status: F Test: MEAN CORPUSCULAR VOLUME; Value: 103.1; Range: 80.0-96.0; Abnormal: Above high normal; Units: fl; Status: F Test: MEAN CORPUSCULAR HEMOGLOBIN; Value: 36.2; Range: 27.0-33.0; Abnormal: Above high normal; Units: pg; Status: F Test: MEAN CORPUSCULAR HGB CONC; Value: 35.1; Range: 32.0-36.5; Units: g/dl; Status: F Test: RED CELL DISTRIBUTION WIDTH; Value: 12.5; Range: 11.5-14.5; Units: %; Status: F Test: PLATELET COUNT, AUTOMATED; Value: 238; Range: 150-450; Units: k/mm3; Status: F Test: NEUTROPHILS %; Value: 62.0; Range: 36.0-66.0; Units: %; Status: F Test: LYMPH %; Value: 19.3; Range: 24.0-44.0; Abnormal: Below low normal; Units: %; Status: F Test: MONO %; Value: 6.1; Range: 0.0-5.0; Abnormal: Above high normal; Units: %; Status: F Test: EOS %; Value: 9.2; Range: 0.0-3.0; Abnormal: Above high normal; Units: %; Status: F Test: BASO %; Value: 0.8; Range: 0.0-1.0; Units: %; Status: F Test: LARGE UNSTAINED CELL %; Value: 2.6; Range: 0.0-4.0; Units: %; Status: F Test: NEUTROPHILS #; Value: 3.9; Range: 1.8-7.7; Units: K/mm3; Status: F Test: LYMPH #; Value: 1.2; Range: 1.5-4.5; Abnormal: Below low normal; Units: K/mm3; Status: F Test: MONO #; Value: 0.4; Range: 0.0-0.8; Units: K/mm3; Status: F Test: EOS #; Value: 0.6; Range: 0.0-0.50; Abnormal: Above high normal; Units: K/mm3; Status: F Test: BASO #; Value: 0.0; Range: 0.0-0.2; Units: K/mm3; Status: F Test: LARGE UNSTAINED CELL #; Value: 0.2; Range: 0.0-0.4; Units: K/mm3; Status: F Lab Order: Cardiac Injury Profile; SPEC'M 06/20/16 09:47 Test: CPK CREATINE PHOSPHOKINASE; Value: 61; Range: 39-308; Units: U/L; Status: F Test: CK-MB VALUE MASS; Value: 2.8; Range: 0.0-3.6; Units: NG/ML; Status: F Test: MB/CK RELATIVE INDEX; Value: 4.59; Range: < OR =4; Abnormal: Above high normal; Status: F Test Note: ; DIAGNOSIS CRITERIA MMB ng/ml Relative Index (RI) NON-AMI < or = 5 N/A BRINK ZONE > 5 < or = 4 AMI > 5 > 4 Lab Order: Troponin; SPEC'M 06/20/16 09:47 Test: TROPONIN I; Value: < 0.02; Range: < 0.10; Units: NG/ML; Status: F Test Note: ; Troponin I Reference Interval for [employer]ee[employer] LOCI: 99th Percentile= 0.00-0.045 ng/ml Risk Stratification: <= 0.10 ng/ml Decreased Risk for Adverse Clinical Events. 0.10-1.50 ng/ml Increased Risk for Adverse Clinical Events. Evaluation of additional criterion and/or repeat testing in 2-6 hours is suggested to rule out myocardial damage. >= 1.50 ng/ml Indicative of Myocardial Injury. Lab Order: BLOOD CULTURES; SPEC'M 06/20/16 10:12 Test: BLOOD CULTURE; Value: No growth after 24 hours . All specimens observed; Status: F Test: BLOOD CULTURE; Value: for 5 days. Results final at that time.; Status: F Test: BLOOD CULTURE; Value: No Growth after 48 hours. All Specimens observed; Status: F Test: BLOOD CULTURE; Value: for 7 days. Results final at that time.; Status: F Radiology Order: Chest, 1 View Test: Chest, 1 View REASON FOR EXAMINATION: Shortness of Breath; CHEST, ONE VIEW:; ; HISTORY: Shortness of breath.; ; COMPARISON: 05/30/2016; ; An increase in interstitial markings is present in the lungs. The heart is normal; in size. The pulmonary vasculature is normal in appearance.; ; IMPRESSION:; ; COPD.; ; ; Signed by; Parish Sanderson MD 06/20/2016 11:16 A; Radiology Order: EKG-ADULT Test: EKG-ADULT REASON FOR EXAMINATION: Shortness of Breath; Stationary ECG Study; [facility] - ED; ; Test Date: 2016-06-20; Pat Name: CHAD LIRA Department:; Room: -; Gender: M Bulk Clerk: ct; : 1945 Requested By: MEL Torres; Order Number: [id number] Reading MD: Marbella Ro; Measurements; Intervals [place]; Rate: 91 P: 78; MD: 171 QRS: 56; QRSD: 82 T: 59; QT: 339; QTc: 418; Interpretive Statements; SINUS RHYTHM WITH OCCASIONAL VENTRICULAR PREMATURE COMPLEXES; DECREASED RATE/INCREASED ECTOPY 05/30/16; Electronically Signed On 06-21-2016 8:00:49 EST by Marbella Ro; Outcome: 13:19 Discharge ordered by Provider. fg 13:39 Discharge Assessment: Patient awake, alert and oriented x 3. No cognitive and/or cjh functional deficits noted. Patient verbalized understanding of disposition instructions. patient administered narcotics - no. The following High Risk Discharge criteria are identified: None. Discharged to home ambulatory, with significant other. Condition: good Condition: stable Condition: improved. Discharge instructions given to patient, Instructed on discharge instructions, follow up and referral plans. medication usage, Demonstrated understanding of instructions, medications, Pt was receptive of discharge instructions/ teaching. Prescriptions given X 1. No special radiology studies were completed. Property :Personal belongings accompany Pt. 13:41 Patient left the ED. [facility] Signatures: Dispatcher MedHost EDMS Viji, Nadia, Reg Reg gb Melinda, Martitae, Reg Reg lg Amariormkimanitien, Juan, JUDGE'S CLERK JUDGE'S CLERK dd6 Rice, Cat, JUDGE'S CLERK JUDGE'S CLERK ct3 Ishan, Dana dem1 Kayla MaurerRN RN [facility] Cata Terrell RN RN mk4 Linda HerreraRN RN Mel Hidalgo MD MD fg Shelton, Caleb,RT RT cs15 Corrections: (The following items were deleted from the chart) 10:56 10:20 Pulse 92bpm; Monitor; Pulse Ox 96%; mk4 mk4 Chart Complete MTDD
== END 2016-06-20 13:41 | disposition home or self-care (01) ==
LOC: M ED 09:21
DX: J20.9 Acute bronchitis, unspecified (principal); J44.1 Chronic obstructive pulmonary disease with (acute) exacerbation; F41.9 Anxiety disorder, unspecified; F32.9 Major depressive disorder, single episode, unspecified; Z79.51 Long term (current) use of inhaled steroids; Z79.899 Other long term (current) drug therapy
CPT/HCPCS: 36415; 71010; 80048; 82550; 82553; 83880; 84484; 85025; 87040; 93005; 93041; 94640; 96374; 99285; J2930

== ENCOUNTER 2017-06-27 13:18 | Emergency (ER) | payer MEDICARE, MEDICAID | END 2017-06-27 14:48 | disposition home or self-care (01) | LOC: M ED 13:18 | DX: S22.42XA Multiple fractures of ribs, left side, initial encounter for closed fracture (principal); J94.8 Other specified pleural conditions; W01.0XXA Fall on same level from slipping, tripping and stumbling without subsequent striking against object, initial encounter; Y92.9 Unspecified place or not applicable; Y93.9 Activity, unspecified; J44.9 Chronic obstructive pulmonary disease, unspecified; Z82.49 Family history of ischemic heart disease and other diseases of the circulatory system; Z79.899 Other long term (current) drug therapy | CPT/HCPCS: 71101 ==

== ENCOUNTER → 2017-10-19 | Outpatient (CLI) | payer MEDICARE, MEDICAID ==
[2017-10-19 12:48] LABS: ALBUMIN 3.5 GM/DL (3.2-5.2); ALBUMIN/GLOBULIN RATIO 1.09 (1.00-1.93); ALKALINE PHOSPHATASE 83 U/L (45-117); ALT/SGPT 20 U/L (12-78); ANION GAP 6 MEQ/L (8-16); AST/SGOT 22 U/L (7-37); BILIRUBIN,TOTAL 0.5 MG/DL (0.2-1.0); BLOOD UREA NITROGEN 14 MG/DL (7-18); CALCIUM LEVEL 8.6 MG/DL (8.8-10.2); CARBON DIOXIDE LEVEL 26 MEQ/L (21-32); CHLORIDE LEVEL 109 MEQ/L (98-107); CHOLESTEROL LEVEL 203 MG/DL (<200); CHOLESTEROL RISK RATIO 2.182 (<5); CREATININE FOR GFR 0.94 MG/DL (0.70-1.30); FREE T4 0.72 NG/DL (0.76-1.46); GLOMERULAR FILTRATION RATE > 60.0 (>42); GLUCOSE, FASTING 89 MG/DL (70-100); HDL CHOLESTEROL 93 MG/DL (>40); NON-HDL-C 110 MG/DL; POTASSIUM SERUM 4.4 MEQ/L (3.5-5.1); SODIUM LEVEL 141 MEQ/L (136-145); TOTAL PROTEIN 6.7 GM/DL (6.4-8.2); TRIGLYCERIDES LEVEL 45 MG/DL (<150)
== END ==
LOC: M LAB 11:12
DX: Z00.00 Encounter for general adult medical examination without abnormal findings (principal)
CPT/HCPCS: 84443

== ENCOUNTER → 2018-10-12 | Outpatient (CLI) | payer MEDICARE, MEDICAID ==
[~2018-10-12] MED LIST changes: -AVEL1TAB PO; +AVEL1TAB3 PO; +BACITAB PO; -BACITAB3 PO; +CITA40TA4; +HYDR-3715 PO; -LEVA750T PO; +LEVA750T7 PO; +MUCI600T37 PO; +PRED-351 PO; -PRED10TA PO
[2018-10-12 13:28] LABS: BASO # 0.1 10^3/uL (0.0-0.2); BASO % 2.1 % (0.0-1.0); EOS # 0.6 10^3/uL (0.0-0.50); EOS % 12.7 % (0.0-3.0); HEMATOCRIT 45.6 % (42.0-52.0); HEMOGLOBIN 15.5 g/dl (13.5-17.5); LYMPH # 1.7 10^3/uL (1.5-4.5); LYMPH % 35.3 % (24.0-44.0); MEAN CORPUSCULAR HEMOGLOBIN 34.2 pg (27.0-33.0); MEAN CORPUSCULAR VOLUME 100.7 fl (80.0-96.0); MONO # 0.5 10^3/uL (0.0-0.8); MONO % 10.4 % (0.0-5.0); NEUTROPHILS # 1.9 10^3/uL (1.8-7.7); NEUTROPHILS % 39.3 % (36.0-66.0); PLATELET COUNT, AUTOMATED 252 10^3/uL (150-450); RED BLOOD COUNT 4.53 10^6/uL (4.30-6.10); WHITE BLOOD COUNT 4.8 10^3/uL (4.0-10.0)
[2018-10-12 14:08] LABS: ALBUMIN 3.3 GM/DL (3.2-5.2); ALT/SGPT 23 U/L (12-78); BILIRUBIN,TOTAL 0.5 MG/DL (0.2-1.0); BLOOD UREA NITROGEN 17 MG/DL (7-18); CALCIUM LEVEL 8.9 MG/DL (8.8-10.2); CARBON DIOXIDE LEVEL 29 MEQ/L (21-32); CHLORIDE LEVEL 106 MEQ/L (98-107); CHOLESTEROL LEVEL 197 MG/DL (<200); CHOLESTEROL RISK RATIO 1.989 (<5); CREATININE FOR GFR 0.92 MG/DL (0.70-1.30); GLOMERULAR FILTRATION RATE > 60.0 (>42); GLUCOSE, FASTING 89 MG/DL (70-100); HDL CHOLESTEROL 99 MG/DL (>40); LDL CHOLESTEROL 89 MG/DL (<100); NON-HDL-C 98 MG/DL; POTASSIUM SERUM 4.4 MEQ/L (3.5-5.1); SODIUM LEVEL 139 MEQ/L (136-145); TRIGLYCERIDES LEVEL 43 MG/DL (<150)
== END ==
LOC: M LAB 12:38
PROVIDERS: ATTEND Physician Assistant
DX: Z00.00 Encounter for general adult medical examination without abnormal findings (principal)

== ENCOUNTER → 2019-12-24 | Outpatient (CLI) | payer MEDICARE, MEDICAID ==
[2019-12-24 10:28] LABS: BASO # 0.1 10^3/uL (0.0-0.2); BASO % 2.1 % (0.0-1.0); EOS # 0.8 10^3/uL (0.0-0.5); HEMATOCRIT 46.3 % (42.0-52.0); HEMOGLOBIN 15.5 g/dl (13.5-17.5); LYMPH # 1.5 10^3/uL (1.5-5.0); LYMPH % 34.2 % (24.0-44.0); MEAN CORPUSCULAR HEMOGLOBIN 34.5 pg (27.0-33.0); MEAN CORPUSCULAR HGB CONC 33.5 g/dl (32.0-36.5); MEAN CORPUSCULAR VOLUME 103.1 fl (80.0-96.0); MONO # 0.5 10^3/uL (0.0-0.8); MONO % 12.2 % (0.0-5.0); NEUTROPHILS # 1.4 10^3/uL (1.5-8.5); NEUTROPHILS % 32.3 % (36.0-66.0); PLATELET COUNT, AUTOMATED 259 10^3/uL (150-450); RED BLOOD COUNT 4.49 10^6/uL (4.30-6.10); WHITE BLOOD COUNT 4.4 10^3/uL (4.0-10.0)
[2019-12-24 10:55] LABS: ALBUMIN 3.1 GM/DL (3.2-5.2); ALT/SGPT 17 U/L (12-78); BILIRUBIN,TOTAL 0.4 MG/DL (0.2-1.0); BLOOD UREA NITROGEN 18 MG/DL (7-18); CALCIUM LEVEL 8.7 MG/DL (8.8-10.2); CARBON DIOXIDE LEVEL 25 MEQ/L (21-32); CHLORIDE LEVEL 109 MEQ/L (98-107); CHOLESTEROL LEVEL 202 MG/DL (<200); CHOLESTEROL RISK RATIO 2.348 (<5); CREATININE FOR GFR 0.84 MG/DL (0.70-1.30); GLOMERULAR FILTRATION RATE > 60.0 (>42); GLUCOSE, FASTING 90 MG/DL (70-100); HDL CHOLESTEROL 86 MG/DL (>40); LDL CHOLESTEROL 105 MG/DL (<100); NON-HDL-C 116 MG/DL; POTASSIUM SERUM 4.9 MEQ/L (3.5-5.1); SODIUM LEVEL 141 MEQ/L (136-145); TRIGLYCERIDES LEVEL 56 MG/DL (<150)
== END ==
LOC: M LAB 09:39
PROVIDERS: ATTEND Physician Assistant
DX: Z00.00 Encounter for general adult medical examination without abnormal findings (principal); Z79.899 Other long term (current) drug therapy

== ENCOUNTER → 2020-03-30 | Outpatient (CLI) | payer MEDICARE, MEDICAID ==
--- NOTE | 2020-03-30 11:29 | REP ---
INDICATION: COPD COMPARISON: 06/27/2017 as well as other prior exams. TECHNIQUE: PA/Lateral FINDINGS: The heart is normal in size. There is no hilar or mediastinal adenopathy. I see no evidence of acute infiltrate in either lung. There is mild biapical pleural thickening. There is pleural and parenchymal scarring in the left costophrenic angle. There are multiple old left rib fractures. There are mild diffuse degenerative changes of the spine without compression deformity. IMPRESSION: No acute pulmonary disease. 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 <Electronically signed by Dave Cherry > 03/30/20 [id number]
== END ==
LOC: M RAD 09:51
PROVIDERS: ATTEND Physician Assistant Medical
DX: J84.10 Pulmonary fibrosis, unspecified (principal); J44.1 Chronic obstructive pulmonary disease with (acute) exacerbation

== ENCOUNTER → 2021-01-22 | Outpatient (CLI) | payer MEDICARE, MEDICAID ==
[2021-01-22 12:02] LABS: BASO # 0.1 10^3/uL (0.0-0.2); BASO % 1.6 % (0.0-1.0); EOS % 19.1 % (0.0-3.0); HEMATOCRIT 46.2 % (42.0-52.0); HEMOGLOBIN 15.5 g/dl (13.5-17.5); LYMPH # 1.6 10^3/uL (1.5-5.0); LYMPH % 31.5 % (24.0-44.0); MEAN CORPUSCULAR HEMOGLOBIN 33.9 pg (27.0-33.0); MEAN CORPUSCULAR HGB CONC 33.5 g/dl (32.0-36.5); MEAN CORPUSCULAR VOLUME 101.1 fl (80.0-96.0); MONO # 0.7 10^3/uL (0.0-0.8); MONO % 13.5 % (2.0-8.0); NEUTROPHILS # 1.7 10^3/uL (1.5-8.5); NEUTROPHILS % 33.9 % (36.0-66.0); PLATELET COUNT, AUTOMATED 246 10^3/uL (150-450); RED BLOOD COUNT 4.57 10^6/uL (4.30-6.10)
[2021-01-22 12:28] LABS: ALBUMIN 3.1 GM/DL (3.2-5.2); ALT/SGPT 26 U/L (12-78); BILIRUBIN,TOTAL 0.5 MG/DL (0.2-1.0); BLOOD UREA NITROGEN 16 MG/DL (7-18); CALCIUM LEVEL 8.8 MG/DL (8.8-10.2); CARBON DIOXIDE LEVEL 28 MEQ/L (21-32); CHLORIDE LEVEL 107 MEQ/L (98-107); CHOLESTEROL LEVEL 226 MG/DL (<200); CHOLESTEROL RISK RATIO 1.965 (<5); CREATININE FOR GFR 0.91 MG/DL (0.70-1.30); GLOMERULAR FILTRATION RATE > 60.0 (>42); GLUCOSE, FASTING 92 MG/DL (70-100); HDL CHOLESTEROL 115 MG/DL (>40); LDL CHOLESTEROL 103 MG/DL (<100); NON-HDL-C 111 MG/DL; POTASSIUM SERUM 4.3 MEQ/L (3.5-5.1); SODIUM LEVEL 140 MEQ/L (136-145); TRIGLYCERIDES LEVEL 39 MG/DL (<150)
== END ==
LOC: M LAB 11:31
PROVIDERS: ATTEND Family Medicine
DX: Z00.00 Encounter for general adult medical examination without abnormal findings (principal); Z79.899 Other long term (current) drug therapy

== ENCOUNTER 2021-01-29 08:58 | Emergency (ER) | payer MEDICARE, MEDICAID ==
[~2021-01-29] VITALS: Ht 165.1 cm; Wt 65.5 kg
[2021-01-29 11:59] LABS: BASO # 0.1 10^3/uL (0.0-0.2); BASO % 1.6 % (0.0-1.0); EOS # 0.1 10^3/uL (0.0-0.5); EOS % 3.8 % (0.0-3.0); HEMATOCRIT 47.6 % (42.0-52.0); LYMPH # 1.2 10^3/uL (1.5-5.0); LYMPH % 34.1 % (24.0-44.0); MEAN CORPUSCULAR HGB CONC 33.6 g/dl (32.0-36.5); MEAN CORPUSCULAR VOLUME 101.1 fl (80.0-96.0); MONO # 0.5 10^3/uL (0.0-0.8); MONO % 13.2 % (2.0-8.0); NEUTROPHILS # 1.7 10^3/uL (1.5-8.5); PLATELET COUNT, AUTOMATED 240 10^3/uL (150-450); RED BLOOD COUNT 4.71 10^6/uL (4.30-6.10); WHITE BLOOD COUNT 3.6 10^3/uL (4.0-10.0)
[2021-01-29] MEDS ORDERED: ISOVUE-370 76% 100ML VIAL As Ordered ONE (12:13)
[2021-01-29 12:35] LABS: ALBUMIN 3.2 GM/DL (3.2-5.2); ALT/SGPT 27 U/L (12-78); BILIRUBIN,DIRECT 0.1 MG/DL (0.0-0.2); BILIRUBIN,TOTAL 0.4 MG/DL (0.2-1.0); CK-MB VALUE MASS 2.1 NG/ML (<3.6); CPK CREATINE PHOSPHOKINASE 56 U/L (39-308); LIPASE 120 U/L (73-393); MB/CK RELATIVE INDEX 3.75 (< OR =4); TOTAL PROTEIN 7.2 GM/DL (6.4-8.2); TROPONIN I < 0.02 NG/ML (< 0.10)
--- NOTE | 2021-01-29 12:42 | REP ---
INDICATION: Right upper. COMPARISON: None TECHNIQUE: Axial contrast-enhanced images from the lung bases to the pubic symphysis using 100 cc Isovue 370 intravenous contrast material. . This CT examination was performed using the following dose reduction techniques: Automated exposure control, adjustment of mA and/or kv according to the patient's size, and the use of iterative reconstruction technique. FINDINGS: Lung bases demonstrate mild bibasilar atelectasis. There is a small right pleural effusion with surrounding pleural enhancement raising the possibility of forming empyema along with trace left pleural fluid. Liver, spleen, pancreas, gallbladder, bilateral adrenal glands and kidneys are normal. The enteric system including stomach, small, and large bowel appears normal. No evidence for obstruction or acute inflammatory process. Normal terminal ileum and appendix are identified in the right lower quadrant. Pelvis demonstrates enlarged prostate gland with mass effect on the base of the bladder. No ascites. No free air. No intraperitoneal or retroperitoneal adenopathy. Abdominal aorta and vasculature demonstrate atherosclerotic changes without aneurysm or dissection. 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 IMPRESSION: 1. Lung base findings as described above including bibasilar atelectasis and small right pleural effusion which may represent a forming empyema. 2. No acute abdominopelvic pathology appreciated. 3. Heterogeneous enlarged prostate gland. <Electronically signed by Manuel Mancilla > 01/29/21 [id number]
[2021-01-29 13:45] VITALS: BP 142/85
--- NOTE | 2021-01-29 14:54 | REP ---
INDICATION: pleural effusion COMPARISON: Multiple the latest 05/30/2016 TECHNIQUE: standard helical technique without intravenous contrast FINDINGS: There is no significant change in appearance of the mediastinum or pulmonary tigre. There is a small right and a tiny left pleural effusion. There is no pericardial effusion. There is no significant change in appearance of the imaged upper abdomen or imaged osseous structures. There multiple old left rib fractures. Evaluation of the lung taylor shows bilateral lower lung field posterior asymmetric densities representing a change from the prior exam. Inferior lingular asymmetric densities are also identified. These are all pleural based or abut the aforementioned effusions. There is a stable right middle lobe nodule. Patchy asymmetric densities are seen in the upper lobes with a subtle ground-glass appearance left greater than right and representing a change from the prior exam. IMPRESSION: Lung field findings as described above suspicious for infectious etiology. Certainly, neoplastic change cannot be completely ruled out. Follow-up is recommended. There is excretion of previously administered radiographic contrast material in each kidney from a CT examination of the abdomen and pelvis obtained earlier same day. <Electronically signed by Sergio Arambula > 01/29/21 [id number]
--- NOTE | 2021-01-29 21:23 | ECGEPIP ---
[facility] - ED Test Date: 2021-01-29 Pat Name: CHAD ROLLINS Department: Room: - Gender: Male [employer] Supervisor: Angelique CESAR : 1945 Requested By: Marbella Ro Order Number: [id number] Reading MD: Marbella Ro Measurements Intervals [place] Rate: 76 P: 90 [place]: 178 QRS: 26 QRSD: 82 T: 42 QT: 390 QTc: 438 Interpretive Statements Normal sinus rhythm Electronically Signed on 01-29-2021 21:23:06 EDT by Marbella Ro
--- NOTE | 2021-02-03 12:28 | ED PDOC ---
Post-Departure Follow-Up radiology report faxed to Dr. debbie Reveles, Marbella Castillo MD Feb 03, 2021 12:28
== END 2021-01-29 15:24 | disposition home or self-care (01) ==
LOC: M ED 08:58
DX: J90 Pleural effusion, not elsewhere classified (principal); J98.11 Atelectasis; R91.8 Other nonspecific abnormal finding of lung field; N40.0 Benign prostatic hyperplasia without lower urinary tract symptoms; R10.9 Unspecified abdominal pain; R11.0 Nausea
CPT/HCPCS: 36415; 71250; 74177; 80047; 80076; 82550; 82553; 83690; 84484; 85025; 93005; 93041; 99285; Q9967

== ENCOUNTER → 2021-03-31 | Outpatient (CLI) | payer MEDICARE, MEDICAID ==
--- NOTE | 2021-03-31 11:27 | REP ---
INDICATION: ABN FINDINGS OF LUNG FIELD COMPARISON: Multiple the latest 01/29/2021 also without contrast TECHNIQUE: Standard helical technique without contrast FINDINGS: There is no significant change in appearance of the mediastinum or pulmonary tigre. Once again, there are multiple borderline round mediastinal and hilar lymph nodes status quo. There is a small right pleural effusion status quo. The imaged upper abdomen and imaged osseous structures are unchanged. Evaluation of the lung taylor shows scattered asymmetric densities which are essentially unchanged and particularly seen in the lung bases, however, there is a new asymmetric ground-glass nodule in the inferior right upper lobe which measures 1.2 cm. IMPRESSION: For the most part the lung taylor are stable as described above, however, there is a new asymmetric ground-glass nodule in the right upper lobe as described above. Due to it sudden onset it likely represents a continuum of chronic lung disease, however, clinical correlation and follow-up is suggested. There is no revised Fleischner society criteria on the recommendation for follow-up of such findings. <Electronically signed by Sergio Arambula > 03/31/21 1128
== END ==
LOC: M RAD 10:34
PROVIDERS: ATTEND Internal Medicine Pulmonary Disease
DX: R91.8 Other nonspecific abnormal finding of lung field (principal)

== ENCOUNTER → 2021-04-16 | Outpatient (CLI) | payer MEDICARE, MEDICAID ==
[2021-04-16 13:42] LABS: BASO # 0.1 10^3/uL (0.0-0.2); BASO % 1.2 % (0.0-1.0); EOS # 0.4 10^3/uL (0.0-0.5); EOS % 8.3 % (0.0-3.0); HEMATOCRIT 44.7 % (42.0-52.0); HEMOGLOBIN 14.7 g/dl (13.5-17.5); LYMPH # 1.5 10^3/uL (1.5-5.0); LYMPH % 29.4 % (24.0-44.0); MEAN CORPUSCULAR HEMOGLOBIN 33.7 pg (27.0-33.0); MEAN CORPUSCULAR HGB CONC 32.9 g/dl (32.0-36.5); MEAN CORPUSCULAR VOLUME 102.5 fl (80.0-96.0); MONO # 0.7 10^3/uL (0.0-0.8); MONO % 14.1 % (2.0-8.0); NEUTROPHILS # 2.3 10^3/uL (1.5-8.5); NEUTROPHILS % 46.6 % (36.0-66.0); PLATELET COUNT, AUTOMATED 265 10^3/uL (150-450); RED BLOOD COUNT 4.36 10^6/uL (4.30-6.10)
[2021-04-16 13:55] LABS: INR 0.93; PROTHROMBIN TIME 12.8 SECONDS (12.7-14.5)
[2021-04-16 13:56] LABS: PARTIAL THROMBOPLASTIN TIME 33.6 SECONDS (25.9-37.0)
[2021-04-16 14:10] LABS: ERYTHROCYTE SEDIMENTATION RATE 13 mm/hr (0-20)
[2021-04-16 14:28] LABS: ALBUMIN 3.4 GM/DL (3.2-5.2); ALT/SGPT 23 U/L (12-78); BILIRUBIN,DIRECT 0.2 MG/DL (0.0-0.2); BILIRUBIN,TOTAL 0.4 MG/DL (0.2-1.0); CALCIUM LEVEL 9.4 MG/DL (8.8-10.2); CREATININE FOR GFR 0.89 MG/DL (0.70-1.30); GLOMERULAR FILTRATION RATE > 60.0 (>42); TOTAL PROTEIN 7.3 GM/DL (6.4-8.2)
== END ==
LOC: M PLALAB 11:24
PROVIDERS: ATTEND Internal Medicine Pulmonary Disease
DX: R91.8 Other nonspecific abnormal finding of lung field (principal)

== ENCOUNTER → 2021-04-22 | Outpatient (CLI) | payer MEDICARE, MEDICAID ==
[~2021-04-22] MED LIST changes: -CITA40TA4; +FLUT1BLS6 INH
--- NOTE | 2021-04-23 14:03 | ECHO ---
ECHOCARDIOGRAM DATE OF PROCEDURE: 04/22/2021 Age: 76 Gender: Male Height: 67 inches Weight: 145 pounds Body surface area: 1.76 m2 PATIENT LOCATION: Outpatient. REFERRING PHYSICIAN: Manuelito Viera M.D. INDICATION: Shortness of breath; asthma. MEASUREMENTS: 2D Measurements: RV - 3.6 cm LV - 4.3 cm Septum 1.1 cm Posterior wall 1.1 cm Aortic root 3.6 cm LA - 4.1 cm LVEF 70% Doppler Measurements: AV - 1.78 m/sec LVOT - 0.94 m/sec LVOT diameter 1.9 cm MV-E 95, A 91, EA ratio 1 Early mitral deceleration time 180 msec E prime medial 6 A prime medial 10.5 E prime lateral 10.9 Average E/E prime ratio 11.2/PCWP 15.8 mmHg PV - 0.8 m/sec Pulmonary artery acceleration time 109 msec PASP - 34 mmHg IVC - 1.6 cm COMMENTS: Normal sinus rhythm without intraventricular conduction disturbance. M-mode and 2-dimensional cardiography was performed with pulse, continuous wave, color flow and tissue Doppler studies. Normal left ventricular size with wall thickness upper limits of normal with hyperkinetic wall motion. Slightly dilated left atrium with grade 1 left ventricular (LV) diastolic dysfunction, but current estimated mean left atrial pressure within normal limits. Normal right heart chamber sizes and motion with single Doppler sign of mild pulmonary hypertension. Normal inferior vena cava (IVC) size and collapse against an elevated central venous pressure. Normal aortic dimensions. Mild aortic valvular sclerosis without functional abnormality. Mild degenerative changes of the mitral valvular apparatus without inflow tract obstruction and only trace insufficiency. Normal appearing tricuspid valve with only trace insufficiency. No apparent intracardiac mass or pericardial effusion.
== END ==
LOC: M CARPUL 10:03
PROVIDERS: ATTEND Internal Medicine Pulmonary Disease
DX: J45.40 Moderate persistent asthma, uncomplicated (principal); R06.02 Shortness of breath

== ENCOUNTER → 2021-04-26 | Outpatient (CLI) | payer MEDICARE, MEDICAID ==
[~2021-04-26] MED LIST changes: +HOME MED LIST COMPLETE! XX SCH; +LIDOCAINE 1% MDV 20ML VIAL As Ordered ONE
[2021-04-26 12:00] VITALS: BP 124/60
--- NOTE | 2021-04-26 16:04 | REP ---
INDICATION: RLL NODULE. COMPARISON: None. TECHNIQUE: The procedure is performed by YAN Malone, under the direct supervision of Dr. Cherry. The risks and benefits of the procedure were explained to the patient and informed consent was obtained both orally and written. Directly prior to the start of the procedure, a formal timeout was done in the exam room. The right lower lobe lung nodule was localized using CT guidance. Skin was prepped and draped in the usual sterile fashion. Ten ml of 1% lidocaine 10 mg/ml was used as a local anesthetic. FINDINGS: Using CT guidance a 19/20 gauge coaxial needle biopsy system was inserted and advanced into the nodule. Four core biopsy samples were obtained and sent to the lab. CT images obtained directly after the biopsy show no evidence of pneumothorax. After the appropriate amount of monitored convalescence the patient was discharged from the department. IMPRESSION: Technically successful CT-guided right lower lobe lung nodule biopsy with 4 core biopsy specimens obtained. These were sent to the lab for further evaluation. Results pending. <Electronically signed by Therese Luciano > 04/26/21 1207 <Electronically signed by Dave Cherry > 04/26/21 1600
--- NOTE | 2021-04-26 16:04 | REP ---
INDICATION: S/P LUNG BIOPSY, WITH EXPIRATION. COMPARISON: 03/30/2020. TECHNIQUE: Single expiratory view chest. FINDINGS: There is no pneumothorax status post right lung biopsy. There is chronic pleural thickening and mild bibasilar atelectatic change. The heart and mediastinum are unchanged. IMPRESSION: No pneumothorax status post right lung biopsy. <Electronically signed by Dave Cherry > 04/26/21 1600
== END ==
LOC: M IRPRO 08:18
PROVIDERS: ATTEND Internal Medicine Pulmonary Disease
DX: D14.30 Benign neoplasm of unspecified bronchus and lung (principal); R91.8 Other nonspecific abnormal finding of lung field

== ENCOUNTER → 2021-07-20 | Outpatient (CLI) | payer MEDICARE ==
[~2021-07-20] MED LIST changes: -CITA40TA4 PO; +CITA40TA7 PO; -HOME MED LIST COMPLETE! XX SCH; -LIDOCAINE 1% MDV 20ML VIAL As Ordered ONE
== END ==
LOC: M RAD 12:57
PROVIDERS: ATTEND Internal Medicine Pulmonary Disease
DX: R91.8 Other nonspecific abnormal finding of lung field (principal)

== ENCOUNTER → 2021-10-27 | Outpatient (CLI) | payer MEDICARE ==
[2021-10-27 14:01] LABS: ALT/SGPT 26 U/L (12-78); BILIRUBIN,TOTAL 0.4 MG/DL (0.2-1.0); BLOOD UREA NITROGEN 15 MG/DL (7-18); CALCIUM LEVEL 9.7 MG/DL (8.8-10.2); CARBON DIOXIDE LEVEL 25 MEQ/L (21-32); CHLORIDE LEVEL 108 MEQ/L (98-107); CHOLESTEROL LEVEL 200 MG/DL (<200); CHOLESTEROL RISK RATIO 2.531 (<5); CREATININE FOR GFR 0.93 MG/DL (0.70-1.30); GLOMERULAR FILTRATION RATE > 60.0 (>42); GLUCOSE, FASTING 89 MG/DL (70-100); HDL CHOLESTEROL 79 MG/DL (>40); LDL CHOLESTEROL 110 MG/DL (<100); NON-HDL-C 121 MG/DL; POTASSIUM SERUM 4.1 MEQ/L (3.5-5.1); SODIUM LEVEL 140 MEQ/L (136-145); TOTAL PROTEIN 7.2 GM/DL (6.4-8.2); TRIGLYCERIDES LEVEL 55 MG/DL (<150)
== END ==
LOC: M LAB 12:58
PROVIDERS: ATTEND Nurse Practitioner Family
DX: E78.2 Mixed hyperlipidemia (principal)

== ENCOUNTER → 2022-02-02 | Outpatient (CLI) | payer MEDICARE | LOC: M RAD 12:14 | PROVIDERS: ATTEND Internal Medicine Pulmonary Disease | DX: R91.8 Other nonspecific abnormal finding of lung field (principal) ==

== ENCOUNTER 2022-05-06 10:00 | Inpatient (IN) | payer MEDICARE ==
[~2022-05-06] VITALS: Ht 167.6 cm; Wt 65.7 kg
[2022-05-06] MEDS ORDERED: methylPREDNISolone 125MG 2ML VIAL IV ONE (11:40)
[2022-05-06 11:48] LABS: BASO # 0.1 10^3/uL (0.0-0.2); BASO % 0.4 % (0.0-1.0); HEMATOCRIT 49.8 % (42.0-52.0); HEMOGLOBIN 16.3 g/dl (13.5-17.5); LYMPH # 1.7 10^3/uL (1.5-5.0); LYMPH % 5.3 % (24.0-44.0); MEAN CORPUSCULAR HEMOGLOBIN 32.9 pg (27.0-33.0); MEAN CORPUSCULAR HGB CONC 32.7 g/dl (32.0-36.5); MEAN CORPUSCULAR VOLUME 100.4 fl (80.0-96.0); MONO # 1.3 10^3/uL (0.0-0.8); MONO % 4.1 % (2.0-8.0); NEUTROPHILS # 27.4 10^3/uL (1.5-8.5); NEUTROPHILS % 88.5 % (36.0-66.0); PLATELET COUNT, AUTOMATED 340 10^3/uL (150-450); RED BLOOD COUNT 4.96 10^6/uL (4.30-6.10)
[2022-05-06 11:59] LABS: WHITE BLOOD COUNT 30.9 10^3/uL (4.0-10.0)
[2022-05-06] MEDS: COMBIVENT RESPIMAT 100-20MCG INHALER 4GM INH SCH ×3 (12:11→12:32)
[2022-05-06 12:14] LABS: BILIRUBIN,DIRECT 0.1 MG/DL (<0.4)
[2022-05-06] MEDS ORDERED: cefTRIAXone SOD 2 GM in D5W MINI-BAG PLUS 50 ML IV ONE (12:25)
[2022-05-06 12:36] LABS: ALKALINE PHOSPHATASE 97 U/L (46-116); ALT/SGPT 30 U/L (7.0-40); AST/SGOT 29 U/L (<34); BILIRUBIN,TOTAL 0.6 MG/DL (0.3-1.2); BLOOD UREA NITROGEN 13 MG/DL (9-23); CARBON DIOXIDE LEVEL 28 MMOL/L (20-31); CHLORIDE LEVEL 101 MMOL/L (98-107); CREATININE FOR GFR 0.83 MG/DL (0.70-1.30); GLOMERULAR FILTRATION RATE > 60.0 (>42); GLUCOSE, FASTING 118 MG/DL (74-106); POTASSIUM SERUM 4.6 MMOL/L (3.5-5.1); SODIUM LEVEL 137 MMOL/L (136-145); TOTAL PROTEIN 7.1 G/DL (5.7-8.2)
[2022-05-06] MEDS: IPRATROPIUM 0.5MG/ALBUTEROL 2.5MG INH SOL UD 3ML (DUONEB) NEB SCH ×2 (14:00→19:24)
[2022-05-06] MEDS ORDERED: XIID5DRO OU (14:09)
[2022-05-06] MEDS ORDERED: ALBU2.5V10 INH (14:09)
[2022-05-06] MEDS ORDERED: THERTAB21 PO (14:09)
[2022-05-06] MEDS ORDERED: VITA500C24 PO (14:09)
[2022-05-06] MEDS ORDERED: HOME MED LIST COMPLETE! XX SCH (14:15)
[2022-05-06] MEDS ORDERED: IPRATROPIUM 0.5MG/ALBUTEROL 2.5MG INH SOL UD 3ML (DUONEB) NEB PRN (14:40)
[2022-05-06] MEDS: NS 1,000 ML IV SCH (15:17)
[2022-05-06 16:20] VITALS: BP 116/69
[2022-05-06] MEDS: DOXYCYCLINE HYCLATE 100MG TABLET PO SCH ×2 (16:52→21:00)
[2022-05-06] MEDS: ENOXAPARIN 40MG/0.4ML SYRINGE (J1650 PER 10MG) SC SCH (16:57)
[2022-05-06] MEDS: CitaloPRAM (CeleXA) 20 MG TAB PO SCH (16:57)
[2022-05-06 19:43] VITALS: BP 118/69
[2022-05-07] MEDS: IPRATROPIUM 0.5MG/ALBUTEROL 2.5MG INH SOL UD 3ML (DUONEB) NEB SCH ×2 (01:09→08:08)
[2022-05-07] MEDS: NS 1,000 ML IV SCH (02:37)
[2022-05-07 05:55] VITALS: BP 132/73
[2022-05-07 06:28] LABS: BASO # 0.1 10^3/uL (0.0-0.2); BASO % 0.4 % (0.0-1.0); EOS % 0.1 % (0.0-3.0); HEMATOCRIT 42.1 % (42.0-52.0); LYMPH # 1.6 10^3/uL (1.5-5.0); LYMPH % 9.4 % (24.0-44.0); MEAN CORPUSCULAR HEMOGLOBIN 32.9 pg (27.0-33.0); MEAN CORPUSCULAR HGB CONC 32.5 g/dl (32.0-36.5); MEAN CORPUSCULAR VOLUME 101.2 fl (80.0-96.0); MONO # 0.7 10^3/uL (0.0-0.8); MONO % 4.1 % (2.0-8.0); NEUTROPHILS # 14.5 10^3/uL (1.5-8.5); NEUTROPHILS % 84.7 % (36.0-66.0); PLATELET COUNT, AUTOMATED 299 10^3/uL (150-450); RED BLOOD COUNT 4.16 10^6/uL (4.30-6.10); WHITE BLOOD COUNT 17.1 10^3/uL (4.0-10.0)
[2022-05-07 06:30] LABS: HEMOGLOBIN 13.7 g/dl (13.5-17.5)
[2022-05-07 06:57] LABS: BLOOD UREA NITROGEN 20 MG/DL (9-23); CALCIUM LEVEL 8.5 MG/DL (8.3-10.6); CARBON DIOXIDE LEVEL 29 MMOL/L (20-31); CHLORIDE LEVEL 105 MMOL/L (98-107); CREATININE FOR GFR 0.78 MG/DL (0.70-1.30); GLOMERULAR FILTRATION RATE > 60.0 (>42); GLUCOSE, FASTING 125 MG/DL (74-106); POTASSIUM SERUM 4.4 MMOL/L (3.5-5.1); SODIUM LEVEL 139 MMOL/L (136-145)
[2022-05-07] MEDS: CitaloPRAM (CeleXA) 20 MG TAB PO SCH (08:26)
[2022-05-07] MEDS: DOXYCYCLINE HYCLATE 100MG TABLET PO SCH (08:26)
[2022-05-07] MEDS: ENOXAPARIN 40MG/0.4ML SYRINGE (J1650 PER 10MG) SC SCH (08:26)
[2022-05-07] MEDS ORDERED: CEFD300C41 PO (10:29)
[2022-05-07] MEDS ORDERED: ALBU2.5V10 INH (10:29)
[2022-05-07] MEDS ORDERED: DOXY100C3 PO (10:29)
[2022-05-07] MEDS ORDERED: BENZ200C70 PO (10:31)
[2022-05-07] MEDS ORDERED: cefTRIAXone SOD 2 GM in D5W MINI-BAG PLUS 50 ML IV SCH (13:00)
== END 2022-05-07 11:59 | disposition home or self-care (01) | DRG 871 ==
LOC: M ED 10:00 → M ED INP 14:09 → M MSPAV 16:16
PROVIDERS: ADMIT Internal Medicine; ATTEND Internal Medicine
DX: A41.9 Sepsis, unspecified organism (principal); J96.01 Acute respiratory failure with hypoxia; J18.9 Pneumonia, unspecified organism; F10.20 Alcohol dependence, uncomplicated; Z79.899 Other long term (current) drug therapy; F32.A Depression, unspecified; J44.9 Chronic obstructive pulmonary disease, unspecified

== ENCOUNTER → 2022-06-01 | Outpatient (CLI) | payer MEDICARE ==
[~2022-06-01] MED LIST changes: +ALBU2.5V10 INH; +BENZ200C70 PO; +CEFD300C41 PO; +DOXY100C3 PO; +THERTAB21 PO; +VITA500C24 PO; +XIID5DRO OU
== END ==
LOC: M RAD 11:31
PROVIDERS: ATTEND Nurse Practitioner Family
DX: J18.9 Pneumonia, unspecified organism (principal)

== ENCOUNTER → 2022-08-22 | Outpatient (CLI) | payer MEDICARE | LOC: M PLAIMG 12:23 | PROVIDERS: ATTEND Internal Medicine Pulmonary Disease | DX: R91.8 Other nonspecific abnormal finding of lung field (principal) ==

== ENCOUNTER 2023-01-26 13:48 | Inpatient (IN) | payer MEDICARE ==
[~2023-01-26] VITALS: Ht 165.1 cm; Wt 67.7 kg
[2023-01-26] MEDS ORDERED: NS 1,000 ML IV ONE (16:25)
[2023-01-26] MEDS ORDERED: ACETAMINOPHEN 500 MG TAB PO ONE (16:25)
[2023-01-26 17:00] LABS: BASO # 0.1 10^3/uL (0.0-0.2); BASO % 0.3 % (0.0-1.0); HEMATOCRIT 42.4 % (42.0-52.0); HEMOGLOBIN 14.4 g/dl (13.5-17.5); LYMPH # 1.1 10^3/uL (1.5-5.0); LYMPH % 6.3 % (24.0-44.0); MEAN CORPUSCULAR HEMOGLOBIN 32.9 pg (27.0-33.0); MEAN CORPUSCULAR VOLUME 96.8 fl (80.0-96.0); MONO # 1.4 10^3/uL (0.0-0.8); MONO % 7.9 % (2.0-8.0); NEUTROPHILS # 14.5 10^3/uL (1.5-8.5); NEUTROPHILS % 84.8 % (36.0-66.0); PLATELET COUNT, AUTOMATED 289 10^3/uL (150-450); RED BLOOD COUNT 4.38 10^6/uL (4.30-6.10); WHITE BLOOD COUNT 17.1 10^3/uL (4.0-10.0)
[2023-01-26 17:22] LABS: LIPASE 31 U/L (12-53)
[2023-01-26 17:24] LABS: ALBUMIN 2.9 G/DL (3.2-5.2); ALKALINE PHOSPHATASE 91 U/L (46-116); ALT/SGPT 20 U/L (7.0-40); AST/SGOT 23 U/L (<34); BILIRUBIN,DIRECT 0.2 MG/DL (<0.4); BILIRUBIN,TOTAL 0.5 MG/DL (0.3-1.2); BLOOD UREA NITROGEN 14 MG/DL (9-23); CALCIUM LEVEL 8.6 MG/DL (8.3-10.6); CARBON DIOXIDE LEVEL 27 MMOL/L (20-31); CHLORIDE LEVEL 104 MMOL/L (98-107); CK-MB VALUE MASS < 1.0 NG/ML (<3.6); CPK CREATINE PHOSPHOKINASE 41 U/L (46-171); CREATININE FOR GFR 0.81 MG/DL (0.70-1.30); GLOMERULAR FILTRATION RATE > 60.0 (>42); GLUCOSE, FASTING 118 MG/DL (74-106); MB/CK RELATIVE INDEX 2.43 (< OR =4); POTASSIUM SERUM 4.2 MMOL/L (3.5-5.1); SODIUM LEVEL 137 MMOL/L (136-145); TOTAL PROTEIN 6.5 G/DL (5.7-8.2)
[2023-01-26] MEDS ORDERED: ISOVUE-370 76% 100ML VIAL As Ordered ONE (19:18)
[2023-01-26 20:07] VITALS: O2SAT 93
[2023-01-26] MEDS ORDERED: DOXYCYCLINE HYCLATE 100 MG in D5W MINI-BAG PLUS 100 ML IV ONE (21:00)
[2023-01-26] MEDS ORDERED: cefTRIAXone SOD 1 GM in D5W MINI-BAG PLUS 50 ML IV ONE (21:00)
[2023-01-26] MEDS ORDERED: ACETAMINOPHEN TAB 650MG DOSE (2X325MG) PO PRN (21:30)
[2023-01-26] MEDS ORDERED: ONDANSETRON 4MG 2ML VIAL IV PRN (21:30)
[2023-01-26] MEDS ORDERED: IBUPROFEN 600MG TAB PO PRN (21:30)
[2023-01-26] MEDS ORDERED: ALBU2.5V10 INH (22:11)
[2023-01-26] MEDS ORDERED: ALBU8.5H INH (22:11)
[2023-01-26] MEDS ORDERED: VITMTA PO (22:11)
[2023-01-26] MEDS ORDERED: C-501TAB3 PO (22:11)
[2023-01-26] MEDS ORDERED: HOME MED LIST COMPLETE! XX SCH (22:15)
[2023-01-26] MEDS: PANTOPRAZOLE 40MG TAB (PROTONIX) PO SCH (22:30)
[2023-01-26 22:55] VITALS: BP 152/67; TEMP 97.4; O2SAT 95
[2023-01-26] MEDS: ALBUTEROL SULFATE 2.5MG/0.5ML INH NEB SOLN NEB SCH (23:34)
[2023-01-27] MEDS: ALBUTEROL SULFATE 2.5MG/0.5ML INH NEB SOLN NEB SCH ×6 (03:05→23:23)
[2023-01-27 05:02] LABS: BASO # 0.1 10^3/uL (0.0-0.2); BASO % 0.5 % (0.0-1.0); EOS # 0.2 10^3/uL (0.0-0.5); EOS % 2.2 % (0.0-3.0); HEMATOCRIT 38.6 % (42.0-52.0); LYMPH # 2.1 10^3/uL (1.5-5.0); LYMPH % 19.9 % (24.0-44.0); MEAN CORPUSCULAR HEMOGLOBIN 32.7 pg (27.0-33.0); MEAN CORPUSCULAR HGB CONC 33.7 g/dl (32.0-36.5); NEUTROPHILS # 7.4 10^3/uL (1.5-8.5); NEUTROPHILS % 68.1 % (36.0-66.0); PLATELET COUNT, AUTOMATED 264 10^3/uL (150-450); RED BLOOD COUNT 3.98 10^6/uL (4.30-6.10); WHITE BLOOD COUNT 10.8 10^3/uL (4.0-10.0)
[2023-01-27 05:41] LABS: BLOOD UREA NITROGEN 11 MG/DL (9-23); CARBON DIOXIDE LEVEL 25 MMOL/L (20-31); CHLORIDE LEVEL 107 MMOL/L (98-107); CREATININE FOR GFR 0.78 MG/DL (0.70-1.30); GLOMERULAR FILTRATION RATE > 60.0 (>42); GLUCOSE, FASTING 110 MG/DL (74-106); POTASSIUM SERUM 3.7 MMOL/L (3.5-5.1); SODIUM LEVEL 139 MMOL/L (136-145)
[2023-01-27] MEDS: ADVAIR HFA 230/21MCG INHALER INH SCH ×2 (07:36→20:59)
[2023-01-27 08:05] VITALS: BP 132/61; TEMP 98.5; O2SAT 94
[2023-01-27] MEDS ORDERED: LORazepam 2 MG TAB PO PRN (09:25)
[2023-01-27] MEDS: FOLIC ACID 1MG TAB PO SCH (09:39)
[2023-01-27] MEDS: THIAMINE 100 MG TAB PO SCH ×2 (09:39→20:07)
[2023-01-27] MEDS: ENOXAPARIN 40MG/0.4ML SYRINGE (J1650 PER 10MG) SC SCH (09:39)
[2023-01-27] MEDS: DOXYCYCLINE HYCLATE 100 MG in D5W MINI-BAG PLUS 100 ML IV SCH ×2 (09:39→20:07)
[2023-01-27 09:47] VITALS: BP 99/56
[2023-01-27 16:00] VITALS: BP 120/56; TEMP 98.2; O2SAT 96
[2023-01-27] MEDS: PANTOPRAZOLE 40MG TAB (PROTONIX) PO SCH (20:07)
[2023-01-27] MEDS ORDERED: MULTIVITAMINS/MINERALS THERAP 1 TAB PO SCH (21:00)
[2023-01-27] MEDS ORDERED: CitaloPRAM (CeleXA) 20 MG TAB PO SCH (21:00)
[2023-01-27] MEDS ORDERED: cefTRIAXone SOD 1 GM in D5W MINI-BAG PLUS 50 ML IV SCH (22:00)
[2023-01-28] VITALS: BP 109/57; TEMP 97.8; O2SAT 94
[2023-01-28] MEDS: ALBUTEROL SULFATE 2.5MG/0.5ML INH NEB SOLN NEB SCH ×2 (03:33→08:19)
[2023-01-28 04:53] LABS: BASO # 0.1 10^3/uL (0.0-0.2); BASO % 0.9 % (0.0-1.0); EOS # 0.3 10^3/uL (0.0-0.5); HEMATOCRIT 38.1 % (42.0-52.0); HEMOGLOBIN 12.8 g/dl (13.5-17.5); LYMPH # 1.9 10^3/uL (1.5-5.0); LYMPH % 32.2 % (24.0-44.0); MEAN CORPUSCULAR HEMOGLOBIN 32.8 pg (27.0-33.0); MEAN CORPUSCULAR HGB CONC 33.6 g/dl (32.0-36.5); MEAN CORPUSCULAR VOLUME 97.7 fl (80.0-96.0); MONO # 0.7 10^3/uL (0.0-0.8); MONO % 11.4 % (2.0-8.0); NEUTROPHILS # 2.9 10^3/uL (1.5-8.5); NEUTROPHILS % 50.2 % (36.0-66.0); PLATELET COUNT, AUTOMATED 252 10^3/uL (150-450); WHITE BLOOD COUNT 5.8 10^3/uL (4.0-10.0)
[2023-01-28 05:13] LABS: BLOOD UREA NITROGEN 11 MG/DL (9-23); CALCIUM LEVEL 8.5 MG/DL (8.3-10.6); CARBON DIOXIDE LEVEL 26 MMOL/L (20-31); CHLORIDE LEVEL 109 MMOL/L (98-107); CREATININE FOR GFR 0.77 MG/DL (0.70-1.30); GLOMERULAR FILTRATION RATE > 60.0 (>42); GLUCOSE, FASTING 118 MG/DL (74-106); POTASSIUM SERUM 3.3 MMOL/L (3.5-5.1); SODIUM LEVEL 142 MMOL/L (136-145)
[2023-01-28] MEDS ORDERED: POTASSIUM CHLORIDE 10MEQ SR TABLET PO ONE (06:00)
[2023-01-28] MEDS: ADVAIR HFA 230/21MCG INHALER INH SCH (08:19)
[2023-01-28] MEDS: THIAMINE 100 MG TAB PO SCH (08:42)
[2023-01-28] MEDS: FOLIC ACID 1MG TAB PO SCH (08:42)
[2023-01-28] MEDS: DOXYCYCLINE HYCLATE 100 MG in D5W MINI-BAG PLUS 100 ML IV SCH (08:43)
[2023-01-28] MEDS: ENOXAPARIN 40MG/0.4ML SYRINGE (J1650 PER 10MG) SC SCH (08:43)
[2023-01-28] MEDS ORDERED: AUGMENTIN 875 MG TAB PO SCH (09:00)
[2023-01-28] MEDS ORDERED: AMOX875T2 PO (09:04)
== END 2023-01-28 11:20 | disposition home or self-care (01) | DRG 871 ==
LOC: M ED 13:48 → M ED INP 21:27 → M PCU 22:45
PROVIDERS: ADMIT Internal Medicine Nephrology; ATTEND Internal Medicine Nephrology
DX: A41.9 Sepsis, unspecified organism (principal); J18.9 Pneumonia, unspecified organism; I50.32 Chronic diastolic (congestive) heart failure; J44.0 Chronic obstructive pulmonary disease with (acute) lower respiratory infection; K21.9 Gastro-esophageal reflux disease without esophagitis; F32.A Depression, unspecified; F10.10 Alcohol abuse, uncomplicated; R91.1 Solitary pulmonary nodule; J84.10 Pulmonary fibrosis, unspecified; R01.1 Cardiac murmur, unspecified; Z79.899 Other long term (current) drug therapy

== ENCOUNTER → 2023-04-10 | Outpatient (CLI) | payer MEDICARE ==
[~2023-04-10] MED LIST changes: +ALBU8.5H INH; +AMOX875T2 PO; +C-501TAB3 PO; -CEFD300C41 PO; +CEFD300C42 PO
== END ==
LOC: M PLAIMG 10:31
PROVIDERS: ATTEND Nurse Practitioner Family
DX: J44.1 Chronic obstructive pulmonary disease with (acute) exacerbation (principal)

== ENCOUNTER 2023-04-13 12:38 | Emergency (ER) | payer MEDICARE ==
[~2023-04-13] VITALS: Ht 167.6 cm; Wt 63.6 kg
[2023-04-13] MEDS ORDERED: PRED10TA2 PO (13:16)
[2023-04-13] MEDS ORDERED: DOXY-444 PO (13:16)
[2023-04-13 16:43] LABS: BASO # 0.1 10^3/uL (0.0-0.2); EOS % 0.3 % (0.0-3.0); HEMATOCRIT 45.1 % (42.0-52.0); HEMOGLOBIN 14.7 g/dl (13.5-17.5); LYMPH # 1.3 10^3/uL (1.5-5.0); LYMPH % 21.2 % (24.0-44.0); MEAN CORPUSCULAR HEMOGLOBIN 31.9 pg (27.0-33.0); MEAN CORPUSCULAR HGB CONC 32.6 g/dl (32.0-36.5); MEAN CORPUSCULAR VOLUME 97.8 fl (80.0-96.0); MONO # 0.5 10^3/uL (0.0-0.8); NEUTROPHILS # 4.1 10^3/uL (1.5-8.5); NEUTROPHILS % 69.2 % (36.0-66.0); PLATELET COUNT, AUTOMATED 349 10^3/uL (150-450); RED BLOOD COUNT 4.61 10^6/uL (4.30-6.10)
[2023-04-13] MEDS ORDERED: methylPREDNISolone 125MG 2ML VIAL IV ONE (16:50)
[2023-04-13 17:08] LABS: BLOOD UREA NITROGEN 19 MG/DL (9-23); CALCIUM LEVEL 9.1 MG/DL (8.3-10.6); CARBON DIOXIDE LEVEL 30 MMOL/L (20-31); CHLORIDE LEVEL 104 MMOL/L (98-107); CK-MB VALUE MASS < 1.0 NG/ML (<3.6); CPK CREATINE PHOSPHOKINASE 64 U/L (46-171); CREATININE FOR GFR 0.81 MG/DL (0.70-1.30); GLOMERULAR FILTRATION RATE > 60.0 (>42); GLUCOSE, FASTING 113 MG/DL (74-106); MB/CK RELATIVE INDEX 1.56 (< OR =4); POTASSIUM SERUM 5.6 MMOL/L (3.5-5.1); SODIUM LEVEL 141 MMOL/L (136-145)
[2023-04-13] MEDS: IPRATROPIUM 0.5MG/ALBUTEROL 2.5MG INH SOL UD 3ML (DUONEB) NEB SCH ×2 (17:12→17:13)
[2023-04-13 18:49] VITALS: BP 157/74; TEMP 98.9; O2SAT 95
== END 2023-04-13 18:48 | disposition home or self-care (01) ==
LOC: M ED 12:38
DX: J44.1 Chronic obstructive pulmonary disease with (acute) exacerbation (principal); J06.9 Acute upper respiratory infection, unspecified; J91.8 Pleural effusion in other conditions classified elsewhere; I45.10 Unspecified right bundle-branch block; Z79.52 Long term (current) use of systemic steroids; Z79.899 Other long term (current) drug therapy
CPT/HCPCS: 71046; 71250; 80048; 82550; 82553; 84484; 85025; 86850; 86900; 86901; 87486; 87581; 87633; 87798; 93005; 94640; 96374; 99284; J2930

== ENCOUNTER → 2023-05-22 | Outpatient (CLI) | payer MEDICARE ==
[~2023-05-22] MED LIST changes: +CEFD1CAP9 PO; -CEFD300C42 PO; +DOXY-444 PO; +PRED10TA2 PO
== END ==
LOC: M PLAIMG 10:29
PROVIDERS: ATTEND Internal Medicine Pulmonary Disease
DX: R91.8 Other nonspecific abnormal finding of lung field (principal); J90 Pleural effusion, not elsewhere classified; J98.11 Atelectasis

== ENCOUNTER → 2023-06-27 | Outpatient (REF) | payer MEDICARE | LOC: M LAB REF 17:11 | PROVIDERS: ATTEND Internal Medicine Pulmonary Disease | DX: R05.9 Cough, unspecified (principal) ==

== ENCOUNTER → 2023-08-30 | Outpatient (CLI) | payer MEDICARE | LOC: M WUC 13:03 | PROVIDERS: ATTEND Student in an Organized Health Care Education/Training Program | DX: R06.02 Shortness of breath (principal); J98.11 Atelectasis ==

== ENCOUNTER → 2024-01-11 | Outpatient (CLI) | payer MEDICARE ==
[~2024-01-11] MED LIST changes: +DOXY-440 PO; -DOXY-444 PO
== END ==
LOC: M RAD 14:49
PROVIDERS: ATTEND Internal Medicine Pulmonary Disease
DX: R91.8 Other nonspecific abnormal finding of lung field (principal)

== ENCOUNTER → 2024-03-25 | Outpatient (CLI) | payer MEDICARE | LOC: M WUC 11:13 | PROVIDERS: ATTEND Student in an Organized Health Care Education/Training Program | DX: J20.9 Acute bronchitis, unspecified (principal); R06.02 Shortness of breath ==

== ENCOUNTER → 2024-08-27 | Outpatient (CLI) | payer MEDICARE ==
[~2024-08-27] MED LIST changes: -ADV250INH INH; +ADVA1AER9 INH
[2024-08-27 14:04] LABS: BASO # 0.1 10^3/uL (0.0-0.2); BASO % 1.1 % (0.0-1.0); EOS # 0.4 10^3/uL (0.0-0.5); EOS % 5.8 % (0.0-3.0); HEMATOCRIT 49.6 % (42.0-52.0); HEMOGLOBIN 16.6 g/dl (13.5-17.5); LYMPH # 2.5 10^3/uL (1.5-5.0); LYMPH % 33.4 % (24.0-44.0); MEAN CORPUSCULAR HEMOGLOBIN 34.3 pg (27.0-33.0); MEAN CORPUSCULAR HGB CONC 33.5 g/dl (32.0-36.5); MEAN CORPUSCULAR VOLUME 102.5 fl (80.0-96.0); MONO % 13.2 % (2.0-8.0); NEUTROPHILS # 3.5 10^3/uL (1.5-8.5); NEUTROPHILS % 46.1 % (36.0-66.0); PLATELET COUNT, AUTOMATED 275 10^3/uL (150-450); RED BLOOD COUNT 4.84 10^6/uL (4.30-6.10); WHITE BLOOD COUNT 7.6 10^3/uL (4.0-10.0)
[2024-08-27 14:20] LABS: ALBUMIN 3.3 G/DL (3.2-5.2); ALKALINE PHOSPHATASE 113 U/L (40-129); ALT/SGPT 21 U/L (7.0-40); AST/SGOT 29 U/L (<34); BILIRUBIN,TOTAL 0.6 MG/DL (0.3-1.2); BLOOD UREA NITROGEN 12 MG/DL (9-23); CALCIUM LEVEL 9.3 MG/DL (8.3-10.6); CARBON DIOXIDE LEVEL 31 MMOL/L (20-31); CHLORIDE LEVEL 106 MMOL/L (98-107); CREATININE FOR GFR 0.84 MG/DL (0.70-1.30); GLOMERULAR FILTRATION RATE > 60.0 (>35); GLUCOSE, FASTING 92 MG/DL (74-106); POTASSIUM SERUM 5.6 MMOL/L (3.5-5.1); SODIUM LEVEL 143 MMOL/L (136-145)
== END ==
LOC: M LAB 12:01
PROVIDERS: ATTEND Nurse Practitioner Family
DX: Z00.00 Encounter for general adult medical examination without abnormal findings (principal); Z79.899 Other long term (current) drug therapy

== ENCOUNTER 2024-09-24 13:35 | Emergency (ER) | payer MEDICARE ==
[~2024-09-24] VITALS: Ht 167.6 cm; Wt 67.8 kg
[~2024-09-24 13:35] MED LIST changes: +LIFI1DRO4 OU; -XIID5DRO OU
[2024-09-24 14:26] LABS: VENOUS HCO3 27.7 MMOL/L (23.0-27.0); VENOUS O2 SATURATION 82.5 % (60.0-80.0); VENOUS PARTIAL PRESSURE CO2 42.3 mmHg (38.0-50.0); VENOUS PARTIAL PRESSURE O2 45.3 mmHg (30.0-50.0); VENOUS PH 7.434 UNITS (7.330-7.430); VENOUS STANDARD HCO3 26.7 MMOL/L
[2024-09-24 14:30] LABS: BASO % 0.2 % (0.0-1.0); EOS % 0.1 % (0.0-3.0); HEMOGLOBIN 15.9 g/dl (13.5-17.5); LYMPH # 0.9 10^3/uL (1.5-5.0); LYMPH % 5.2 % (24.0-44.0); MEAN CORPUSCULAR HGB CONC 33.1 g/dl (32.0-36.5); MEAN CORPUSCULAR VOLUME 102.8 fl (80.0-96.0); MONO # 1.3 10^3/uL (0.0-0.8); MONO % 7.3 % (2.0-8.0); NEUTROPHILS # 14.7 10^3/uL (1.5-8.5); NEUTROPHILS % 85.7 % (36.0-66.0); PLATELET COUNT, AUTOMATED 255 10^3/uL (150-450); RED BLOOD COUNT 4.67 10^6/uL (4.30-6.10); WHITE BLOOD COUNT 17.2 10^3/uL (4.0-10.0)
[2024-09-24] MEDS: methylPREDNISolone 125MG 2ML VIAL IV ONE (14:30)
[2024-09-24 14:58] LABS: ALKALINE PHOSPHATASE 103 U/L (40-129); ALT/SGPT 40 U/L (7.0-40); AST/SGOT 46 U/L (<34); BILIRUBIN,DIRECT 0.1 MG/DL (<0.4); BILIRUBIN,TOTAL 0.5 MG/DL (0.3-1.2); BLOOD UREA NITROGEN 16 MG/DL (9-23); CARBON DIOXIDE LEVEL 28 MMOL/L (20-31); CHLORIDE LEVEL 101 MMOL/L (98-107); CREATININE FOR GFR 0.76 MG/DL (0.70-1.30); GLOMERULAR FILTRATION RATE > 90.0 (>35); GLUCOSE, FASTING 114 MG/DL (74-106); POTASSIUM SERUM 4.9 MMOL/L (3.5-5.1); SODIUM LEVEL 135 MMOL/L (136-145); TOTAL PROTEIN 6.4 G/DL (5.7-8.2)
[2024-09-24 15:02] LABS: THYROID STIMULATING HORMONE 1.013 uIU/ML (0.55-4.78)
[2024-09-24] MEDS: IPRATROPIUM 0.5MG/ALBUTEROL 2.5MG INH SOL UD 3ML NEB PRN (15:35)
[2024-09-24] MEDS: cefTRIAXone SOD 1 GM in DEXTROSE 5% (D5W) ADV/MINI-BAG 50 ML IV ONE (15:37)
[2024-09-24 15:57] VITALS: TEMP 98.5
[2024-09-24 16:00] VITALS: BP 139/65; O2SAT 93
[2024-09-24] MEDS ORDERED: DOXY-442 PO (16:18)
[2024-09-24] MEDS ORDERED: PRED20TA PO (16:18)
[2024-09-24] MEDS ORDERED: AMOX875T2 PO (16:18)
== END 2024-09-24 16:37 | disposition home or self-care (01) ==
LOC: M ED 13:35
DX: J18.9 Pneumonia, unspecified organism (principal); J44.9 Chronic obstructive pulmonary disease, unspecified; I45.10 Unspecified right bundle-branch block; I50.22 Chronic systolic (congestive) heart failure; J45.909 Unspecified asthma, uncomplicated; Z79.51 Long term (current) use of inhaled steroids; Z79.2 Long term (current) use of antibiotics; Z79.52 Long term (current) use of systemic steroids
CPT/HCPCS: 71045; 80048; 80076; 82803; 83605; 84443; 85025; 87040; 93005; 93041; 94640; 94760; 96365; 99285; J0696; J2919